=== PATIENT | male | born 1945 | race Caucasian/White ===

== ENCOUNTER 2024-04-05 06:44 | Day surgery (SDC) | payer OTHER, SELFPAY ==
[2024-04-05] VITALS (17 sets, daily range): BP systolic 104–167; BP diastolic 55–128; BMI 26.5
[2024-04-05] MEDS: LOW STRENGTH ASPIRIN 81 MG PO (07:12)
[2024-04-05] MEDS: NSS 1000 IV (07:20)
[2024-04-05 07:41] LABS: % Basophils 0.5 % (0-2); % Eosinophils 0.4 % (0-6); % Immature Granulocytes 0.4 % (0-0.5); % Lymphocytes 30.8 % (20.5-51.1); % Monocytes 7.3 % (1.7-9.3); % Neutrophils 60.6 % (42.2-75.2); Absolute Lymphocytes 2.6 10^3/uL (1.2-3.4); Absolute Monocytes 0.6 10^3/uL (0.1-0.6); Absolute Neutrophils 5.1 10^3/uL (1.4-6.5); Hematocrit 43.6 % (39.0-52.0); Hemoglobin 14.4 g/dL (13.0-18.0); Mean Corpuscular Volume 90.8 fL (80.0-94.0); Mean Platelet Volume 11.4 fL (7.4-10.4); Nucleated Red Blood Cells % 0 % (-); Platelet Count 151 10^3/uL (130-400); Red Cell Dist. Width 13.4 % (11.5-14.5); White Blood Cell Count 8.3 10^3/uL (4.8-10.8)
[2024-04-05 08:07] LABS: ALT (SGPT) 17 U/L (0-50); AST (SGOT) 24 U/L (17-59); Albumin 4.1 g/dl (3.5-5.0); Alkaline Phosphatase 78 U/L (38-126); Blood Urea Nitrogen 22 mg/dl (9-20); Calcium 9.6 mg/dl (8.4-10.2); Carbon Dioxide 30 mmol/L (22-30); Chloride 105 mmol/L (98-107); Estimated Creatinine Clearance 64 ml/min; Glucose 91 mg/dl (70-99); Potassium 4.8 mmol/L (3.5-5.1); Sodium 141 mmol/L (135-145); Total Bilirubin 0.8 mg/dl (0.2-1.3); Total Protein 6.7 g/dl (6.3-8.2); eGFR > 60.00
[2024-04-05] MEDS: LASIX 20 MG IV (09:27)
--- NOTE | 2024-04-05 09:42 | PTCARENOTE ---
pt arrived to [facility] S/P cath procedure. Denies any chest pain. Lasix 20mg IV given over 2 min. Shortly after pt had a 26 beat run of VT Asymptomatic. 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 Toprol 50 mg ordered
[2024-04-05] MEDS: TOPROL XL 50 MG PO (09:47)
--- NOTE | 2024-04-05 09:54 | PTCARENOTE ---
Pt voided 300ml of yellow urine after 20mg of lasix IV
--- NOTE | 2024-04-05 12:24 | PTCARENOTE ---
After Pt recd 20mg of lasix , pt voided a total of 1200ml of urine. VSS at discharge . No further VT
--- NOTE | 2024-04-05 17:00 | ITS.CL.CATH ---
Prosthetic Aide - Catheterization
Cardiac Catheterization
Procedure Report:
LEFT HEART CATHETERIZATION
Date of Procedure: April 05, 2024
Referring: Iglesia Bartlett DO
PROCEDURES:
1. Left catheterization, coronary angiogram.
2. Ultrasound-guided access.
3. Attempted right heart catheterization but aborted
INDICATION: New cardiomyopathy as OSH with LVEF 25%, recovered to 40-45% on follow up
ACCESS:
1. Right radial artery, 6Fr. sheath, under US guidance
2. Right brachial vein, 6Fr. sheath. Given significant tortuosity in SCV, this access had to be aborted and RHC could not be performed. Given elevated LVEDP without evidence on exam of low flow state, did not think risk of obtaining femoral access
to complete RHC outweighed benefits in setting of anticoagulation on board.
HEMODYNAMICS : (mmHg)
AO (s/d) : 159/85
LV (s/d) : 148/16
LVEDP : 26mmHg
AO saturation: 91.8% on room air
CORONARY FINDINGS
DOMINANCE: Right
LEFT MAIN: The left main artery is a large-caliber vessel which gives rise to the left anterior descending artery and the left circumflex artery. There is minimal luminal irregularities.
LEFT ANTERIOR DESCENDING: The left anterior descending artery is a large-caliber vessel which gives rise to multiple small to medium caliber diagonal branches as it courses through the anterior interventricular groove and wraps around the apex.
There is moderate degree of tortuosity. There is mild diffuse atherosclerotic plaque. Robust left to right collaterals are noted.
CIRCUMFLEX: The left circumflex artery is a medium caliber vessel which gives rise to 1 small high rising obtuse marginal branch and a second medium to large caliber OM branch. There is moderate degree of tortuosity. Otherwise mild diffuse
atherosclerotic plaque.
RIGHT CORONARY ARTERY: The right coronary artery is a medium to large caliber, dominant vessel which gives rise to the right posterior descending artery and the right posterolateral system. There is long diffuse 40 to 50% mid RCA stenosis with
moderate degree of tortuosity. Distal RCA has 100% chronic total occlusion with robust collaterals from left to right.
SEDATION: 51 minutes of procedural sedation was utilized. An independent medical records administrator was present to assist with and help manage the patient's level of consciousness and physiologic status.
RADIATION SUMMARY: Fluoro Time (min): 6.4, Dose (mGy): 377.5, DAP (Gy.cm2) : 32.7
Closure Device:
1. Vascular band was placed over RRA, 10cc of air.
2. Manual pressure was held over right brachial venous access site with successful hemostasis.
CONCLUSIONS
1. Moderately tortuous coronary arteries.
2. Mild to moderate atherosclerotic plaque in the left coronary system.
3. 40 to 50% mid RCA stenosis. Distal RCA with 100% chronic total occlusion with [id number] collaterals.
4. Significantly elevated LVEDP at 26 mmHg
RECOMMENDATIONS
1. Goal-directed medical therapy for underlying coronary artery disease and ischemic cardiomyopathy.
2. Wean radial band per protocol.
3. Aggressive management of cardiovascular risk factors.
4. Outpatient referral for cardiac rehab.
Copy to: Iglesia Bartlett DO
Kallie Squires MD, FACC, [facility]
== END 2024-04-05 11:40 | disposition home or self-care (01) ==
LOC: CATH 06:44
PROVIDERS: ATTENDING PHYSICIAN Internal Medicine Interventional Cardiology; FAMILY PHYSICIAN Family Medicine; OTHER PHYSICIAN Nuclear Medicine Nuclear Cardiology
DX: I25.10 Atherosclerotic heart disease of native coronary artery without angina pectoris (principal); I25.82 Chronic total occlusion of coronary artery; Z87.891 Personal history of nicotine dependence; Z79.82 Long term (current) use of aspirin
CPT/HCPCS: 99152; 99153; 80053; 83735; 85025; 93458; C1769; C1894; Q9967

== ENCOUNTER 2024-04-17 11:38 | Emergency (ER) | payer OTHER, SELFPAY ==
[2024-04-17] VITALS (12 sets, daily range): BP systolic 90–146; BP diastolic 53–115; PULSE 54–62
--- NOTE | 2024-04-17 12:18 | ED.GENMED ---
History of Present Illness
<Luz Wilson PA-C - Last Filed: 04/17/24 18:02>
General
Chief Complaint: Fainting/Passed Out
Source: patient
Exam Limitations: none
Time Seen by Provider: 04/17/24 12:16
Nursing documentation reviewed up to this point in time: agreed with
History of Present Illness
History of Present Illness:
This is a 78 y/o male with a PMH of afib no thinners, CHF, sleep apnea presenting emergency department today with concerns of a syncopal episode. Patient is a patient of Dr. Bartlett for cardiology. Patient states that he has been feeling dizzy on
and off the past few weeks. Patient states that he feels dizziness when he stands from a sitting position. Patient states that he will feel very lightheaded for a time and then will have to sit down and will resolve. Patient is never had a
syncopal episode until last night. Patient states that he is seeing and catch watching TV and he stood up to adjust the curtains at this point, his witnessed him pass out and fall straight back from a standing position onto his head. Patient
fell back and hit the back of his head. Patient states that he feels well now, denies any visual changes, denies any headache, denies any eye pain. Patient has had no nausea or vomiting. Patient called the office today and he was advised to
report to emergency department. Patient denies any chest pain or shortness of breath. No lower extremity swelling or edema. Of note, patient had a recent cardiac catheterization which prompted which results prompted increase in his medications.
Patient states that since then he feels like his dizziness has gotten worse. Patient does take 2 diuretics as well as beta-blockers and other blood pressure medications. Patient has been stopping and starting different medications himself and
appears to be confused what exactly he should be taking
Past History
<Luz Wilson PA-C - Last Filed: 04/17/24 18:02>
Past History
ED Past Medical History: Arrthythmia (Paroxysmal atrial fibrillation), CHF, HTN, Hypercholesterolemia and Psychiatric
ED Past Surgical History: Cardiac (A. fib ablation 2013; Linq recorder implantation 2013 then removal August 2017.)
Social History
Tobacco: Smoker
Alcohol: Occasional
Drug: None
Personal:
Living: with family
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
Family History
Family History: Other (Noncontributory)
Review of Systems
<Luz Wilson PA-C - Last Filed: 04/17/24 18:02>
Review of Systems
All Other Systems: ROS reviewed and negative except as documented in HPI and ROS
Phy Exam
<Luz Wilson PA-C - Last Filed: 04/17/24 18:02>
Physical Exam
Physical Exam:
General: Patient is well appearing and in no acute distress; non-toxic
Skin: Warm and dry, no rashes or lesions
Head: Normocephalic, atraumatic
Eyes: Sclera non-icteric. EOMs intact. PERRLA.
Cardiac: Regular rate and rhythm, no murmurs
Peripheral Vascular: No lower extremity swelling or edema. Orthostatic vitals are positive. Patient's blood pressure decreases from around 130 systolically to 90s systolically when standing.
Pulm: Normal respiratory effort, no wheezes, rales, rhonchi
Abdomen: No abdominal tenderness to palpation
Neuro: CN II-XII intact, no focal neurologic deficits.
Psychiatric: Appropriate mood and affect.
Course
<Luz Wilson PA-C - Last Filed: 04/17/24 18:02>
Orders/Labs/Results
Orders:
Orders
04/17/24 12:21
Electrocardiogram (*1) Urgent
Reason for Study: Syncope
EKG- Treatment ONCE
04/17/24 12:22
Orthostatic VS- Treatment ONCE
04/17/24 12:59
Complete Blood Count/With Diff Urgent
Comprehensive Metabolic Panel Urgent
04/17/24 13:06
CT Head W/o Iv Contrast Urgent
Comment:
Reason For Exam: syncope, head trauma
04/17/24 14:09
0.9% Sodium Chloride 1000 ml [Nss] 1,000 ml IV BOLUS
Abnormal Lab Results
04/17/24
12:59
MPV 12.5 H fL
(7.4-10.4)
Absolute Neuts (auto) 6.7 H 10^3/uL
(1.4-6.5)
Lymphocytes % 17.8 L %
(20.5-51.1)
Potassium 5.3 H mmol/L
(3.5-5.1)
BUN 28 H mg/dl
(9-20)
Glucose 101 H mg/dl
(70-99)
04/17/24 12:59
04/17/24 12:59
Vital Signs
Initial and Last Documented VS:
Initial Vital Signs
Temp Pulse Resp BP Pulse Ox
98.1 F 74 18 130/73 99
04/17/24 11:47 04/17/24 11:47 04/17/24 11:47 04/17/24 11:47 04/17/24 11:47
Last Documented Vital Signs
Temp Pulse Resp BP Pulse Ox
98.1 F 60 14 134/78 92
04/17/24 11:47 04/17/24 15:46 04/17/24 15:46 04/17/24 15:46 04/17/24 15:45
Apurvalt;Meet Pena, DO - Last Filed: 04/17/24 14:27>
Orders/Labs/Results
Orders:
Orders
04/17/24 12:21
Electrocardiogram (*1) Urgent
Reason for Study: Syncope
EKG- Treatment ONCE
04/17/24 12:22
Orthostatic VS- Treatment ONCE
04/17/24 12:59
Complete Blood Count/With Diff Urgent
Comprehensive Metabolic Panel Urgent
04/17/24 13:06
CT Head W/o Iv Contrast Urgent
Comment:
Reason For Exam: syncope, head trauma
04/17/24 14:09
0.9% Sodium Chloride 1000 ml [Nss] 1,000 ml IV BOLUS
Abnormal Lab Results
04/17/24
12:59
MPV 12.5 H fL
(7.4-10.4)
Absolute Neuts (auto) 6.7 H 10^3/uL
(1.4-6.5)
Lymphocytes % 17.8 L %
(20.5-51.1)
Potassium 5.3 H mmol/L
(3.5-5.1)
BUN 28 H mg/dl
(9-20)
Glucose 101 H mg/dl
(70-99)
04/17/24 12:59
04/17/24 12:59
Vital Signs
Initial and Last Documented VS:
Initial Vital Signs
Temp Pulse Resp BP Pulse Ox
98.1 F 74 18 130/73 99
04/17/24 11:47 04/17/24 11:47 04/17/24 11:47 04/17/24 11:47 04/17/24 11:47
Last Documented Vital Signs
Temp Pulse Resp BP Pulse Ox
98.1 F 60 14 134/78 92
04/17/24 11:47 04/17/24 15:46 04/17/24 15:46 04/17/24 15:46 04/17/24 15:45
Apurvalt;Luz Wilson PA-C - Last Filed: 04/17/24 18:02>
MDM/Problems Addressed
Differential Diagnosis Includes:
Differentials include arrhythmia, orthostatic hypotension, polypharmacy, stroke, electrolyte derangement
MDM/Problems Addressed:
Lightheadedness/syncopal episode:
This is a 78 y/o male with a PMH of afib no thinners, CHF, sleep apnea presenting emergency department today with concerns of a syncopal episode. Patient states that this occurred when he stood up from standing. Patient currently denies dizziness
or lightheadedness while here in the emergency department. His EKG demonstrates normal sinus rhythm axis deviation but no ischemic changes, his CT of the head shows no evidence of acute bleed or skull fracture, his CBC and CMP show no evidence of
anemia or electrolyte derangement. His orthostatic vitals were positive. This is likely causing his symptoms. We did have cardiology come evaluate this patient due to confusion with medication, it was determined that patient likely is being
overdiuresed. Cardiology did make new medication change recommendations. We discussed these changes with patient. Return precautions given. Patient has a follow-up appointment with Dr. Bartlett next week.
Chronic conditions affecting care:
CHF, A-fib on no blood thinner, hypertension, hyperlipidemia, GERD
Acute Exacerbation and/or Progression of Chronic Illness:
CHF, A-fib on no blood thinner, hypertension, hyperlipidemia, GERD
Apurvalt;Luz Wilson PA-C - Last Filed: 04/17/24 18:02>
*Pulse Oximetry
Patient hypoxic: no
*EKG
Interpreted by ED Provider?: Yes
EKG Intrepretation Date: 04/17/24
Interpretation: normal
Comparison EKG: changes noted (no significant changes )
Heart Rate: 60
Rate: normal
Rhythm: sinus
Hixson: left axis deviation
Interval: normal interval, normal QT interval and normal SC interval
QRS Pattern: normal QRS
Ischemia: no ischemia
*Document Management Analyst Interpretation
Rate: normal
Interpretation: normal
Heart Rate: 70
Rhythm: sinus
*Critical Care Note
Total Time (30-74mins, 75-104mins- exclusive of procedures): Not Applicable
Data Reviewed
Review of Other/Old Records Reveals: Operative Reports (reviewed crime lab analyst report from 04/05/17)
<Luz Wilson PA-C - Last Filed: 04/17/24 18:02>
Patient Management
Discussion with other providers: Invoice Classification Clerk (cardiology)
Escalation/DeEscalation of care consider admission/obs:
Admit not indicated. Reviewed this case with my attending Dr. Pena.
ED Attending Note
<Luz Wilson PA-C - Last Filed: 04/17/24 18:02>
-
Portions of this chart may have been created with voice recognition software.� Occasional wrong word or��sound alike� substitutions may have occurred due to the inherent limitations of voice recognition software.
<Meet Pena DO - Last Filed: 04/17/24 14:27>
ED Attending Note
Patient seen and examined by attending physician: Yes
I performed the substantive portion of visit, reviewed & personally made and approve the management plan that is documented in note by myself or RADHA.: Yes
ED Attending Note:
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 BARTLETT status post cardiac cath few weeks ago since then has been feeling weak and dizzy, passed out yesterday, here he looks well labs are noted, is orthostatic, states
he got some new meds after his cath, will touch base with cardiology to confirm in the meantime will start some saline hydration
Discharge Plan
Departure
Patient Disposition: Home (Routine Discharge)
Date of Disposition: 04/17/24
Time of Disposition: 15:45
Patient with high blood pressure during this ER visit?: Yes
Condition: Good
Discharge Problem:
Orthostatic hypotension, Syncope
Instructions: Orthostatic hypotension, Syncope (Fainting) (DC), BLOOD PRESSURE
Prescriptions:
No Action
paroxetine HCl 20 MG tablet
20 mg PO DAILY
aspirin 81 mg Tablet,Delayed Release (Dr/Ec)
81 mg PO DAILY
ibuprofen [Advil] 200 mg Tablet
200 mg PO Q6HPRN PRN (Reason: back pains)
metoprolol succinate 50 mg Tablet Extended Release 24 Hr
50 mg PO DAILY Qty: 30 0RF
omeprazole 40 mg Capsule,Delayed Release(Dr/Ec)
40 mg PO DAILY
coenzyme Q10 [CoQ-10] 100 mg Capsule
100 mg PO DAILY
atorvastatin 80 mg tablet
80 mg PO QPM Qty: 90 3RF
valsartan 320 mg tablet
320 mg PO DAILY Qty: 90 3RF
spironolactone 25 mg tablet
25 mg PO DAILY Qty: 90 3RF
furosemide 20 mg Tablet
20 mg PO BID Qty: 60 6RF
Referrals:
Hung Barrett, DO [Family Provider] -
Activity Restrictions/Additional Instructions:
Please follow-up with Dr. Bartlett next week with your scheduled appointment. Have a blood test called [facility] repeated in one week.
Please follow these medication recommendations by cardiology:
switch lasix to one 20 mg tablet once daily
take one 50 mg tablet of metoprolol once daily
switch valsartan back to one 160 mg tablet once daily
stop spironolactone
Please return to emergency department should you experience chest pain, shortness of breath, further syncopal episodes, headache, lightheadedness, visual changes, or any other concerning signs or symptoms.
Interventions
Interventions:
*Risk Screen - Suicide Last Done: 04/17/24 11:47
*General Assessment Last Done: 04/17/24 12:35
*Neglect/Abuse Screening Last Done: 04/17/24 11:47
ED- Fall Risk Assessment Last Done: 04/17/24 13:20
*ED COVID-19 Vaccine History Last Done: 04/17/24 11:47
*Nursing Disposition Last Done: 04/17/24 16:11
ED- Cardiac Assessment Last Done: 04/17/24 12:38
ED- Neurological Assessment Last Done: 04/17/24 12:38
Discharge Date and Time
Discharge Date/Time: 04/17/24 16:12
Print Language: MACEDONIAN
[2024-04-17 13:06] LABS: % Basophils 0.3 % (0-2); % Eosinophils 0.6 % (0-6); % Immature Granulocytes 0.2 % (0-0.5); % Lymphocytes 17.8 % (20.5-51.1); % Monocytes 6.2 % (1.7-9.3); % Neutrophils 74.9 % (42.2-75.2); Absolute Eosinophils 0.1 10^3/uL (0-0.7); Absolute Lymphocytes 1.6 10^3/uL (1.2-3.4); Absolute Monocytes 0.6 10^3/uL (0.1-0.6); Absolute Neutrophils 6.7 10^3/uL (1.4-6.5); Hemoglobin 15.5 g/dL (13.0-18.0); Mean Corp Hgb Conc. 33.7 g/dL (33.0-37.0); Mean Corpuscular Hgb 30.3 pg (27.0-31.0); Mean Platelet Volume 12.5 fL (7.4-10.4); Nucleated Red Blood Cells % 0 % (-); Platelet Count 179 10^3/uL (130-400); Red Blood Cell Count 5.11 10^6/uL (4.70-6.10); Red Cell Dist. Width 13.1 % (11.5-14.5); White Blood Cell Count 8.9 10^3/uL (4.8-10.8)
[2024-04-17 13:29] LABS: ALT (SGPT) 19 U/L (0-50); AST (SGOT) 24 U/L (17-59); Albumin 4.6 g/dl (3.5-5.0); Alkaline Phosphatase 88 U/L (38-126); Blood Urea Nitrogen 28 mg/dl (9-20); Calcium 9.9 mg/dl (8.4-10.2); Carbon Dioxide 29 mmol/L (22-30); Chloride 104 mmol/L (98-107); Glucose 101 mg/dl (70-99); Potassium 5.3 mmol/L (3.5-5.1); Sodium 140 mmol/L (135-145); Total Protein 7.4 g/dl (6.3-8.2); eGFR > 60.00
[2024-04-17] MEDS: NSS 1000 IV (14:15)
--- NOTE | 2024-04-17 15:08 | CON.CAR ---
Addendum entered and electronically signed by Bita Chaves MD 04/17/24 16:08:
I saw and examined the patient.
The Certified Emergency Vehicle Technician's note was reviewed and I agree with the note.
Comment: He appears to be dehydrated, orthostatic and overmedicated. We will de-escalate his medications. He did receive IV fluids gently in the ER. He is feeling better. All studies and labs reviewed.
Plan at this time as noted to decrease valsartan to 160 mg daily. Hold spironolactone. Hold Lasix 1 day and then resume 20 mg daily. Blood work before upcoming visit next week.
We discussed isometric exercises. We discussed signs and symptoms of cardiovascular disease and he will call if new symptoms noted. Discussed at length with the patient and his
Original Note:
Consultation
Consultation Request
Date/Time Consultation Performed: 04/17/24
Requesting Provider: Dr. Pena
Performing Provider: Nadine Todd PA-C for Dr. Bita Chaves
Reason for Consultation: syncope
Medical History
-
Chief Complaint: syncope
History of Present Illness:
Patient is a 78-year-old male with past medical history of paroxysmal atrial fibrillation with history of PVI in 2013, systolic congestive heart failure, cardiomyopathy by admission at [facility] 12/13- with EF improved from 25 to 30% to 40
to 45% during the hospitalization, with elevated troponin, suspicion for Takotsubo. During admission he had atrial fibrillation but converted back to sinus rhythm. He had hypertensive emergency on admission and had run out of his diuretic 2 weeks
prior. He initially required BiPAP. He was started on diuretics and developed SCHUYLER. Due to this did not undergo ischemic evaluation during that admission. He underwent cardiac catheterization 04/05/2024 at which showed a distal RCA occlusion
with 40 to 50% mid RCA stenosis and mild to moderate plaque in left coronary system with LVEDP of 26. Based on results of cath, his spironolactone was increased from 12.5 mg daily to 25 mg daily, his valsartan was increased from 160 mg daily to 320
mg daily, and he was recommended increasing his Lasix from 20 mg daily to 20 mg twice daily. He states he may have taken the twice daily Lasix for a day or 2, however then decreased it back to 20 mg daily on his own. Since his cath he reports
feeling intermittently dizzy and weak. Last evening he was watching TV and stood up to close a curtain and felt lightheaded and passed out. He was called by our office today due to results of blood work completed last week with creatinine up to
1.65 and potassium of 5.5. He relayed to them the syncopal episode and was referred to the ER for evaluation. In ER creatinine improved to 1.2 and potassium improved to 5.3. He was orthostatic in ER.
PMH:
CAD with distal RCA occlusion, 40-50% mid RCA, mild to mod plaque in L coronary system by cath 04/05/24
Ischemic cardiomyopathy, EF 40 to 45% by echo at [facility] 11/2023
Paroxysmal atrial fibrillation
History of PVI in 2013
History of tachy induced CM in setting of afib prePVI
Not anticoagulated due to patient preference/cost
Systolic congestive heart failure
HTN
HLD
GERD
Former smoker
Past Medical History
Past Medical History: Other (in HPI)
Social History
Tobacco: Former Smoker
Personal:
Living: With Family
Employment: Retired
Allergies / Home Medications
Allergy/AdvReac Type Severity Reaction Status Date / Time
No Known Allergies Allergy Verified 04/17/24 11:46
�Medication �Instructions �Recorded �Confirmed �Type
paroxetine HCl 20 mg tablet 20 mg PO DAILY 01/04/13 04/05/24 History
aspirin 81 mg tablet,delayed 81 mg PO DAILY 10/19/23 04/05/24 History
release
ibuprofen 200 mg tablet (Advil) 200 mg PO Q6HPRN PRN back pains 10/19/23 04/05/24 History
metoprolol succinate 50 mg 50 mg PO DAILY #30 tabs 10/20/23 04/05/24 Rx
tablet,extended release 24 hr
atorvastatin 80 mg tablet 80 mg PO QPM #90 tabs 04/05/24 Rx
coenzyme Q10 100 mg capsule 100 mg PO DAILY 04/05/24 04/05/24 History
(CoQ-10)
furosemide 20 mg tablet 20 mg PO BID #60 tabs 04/05/24 04/05/24 Rx
omeprazole 40 mg capsule,delayed 40 mg PO DAILY 04/05/24 04/05/24 History
release
spironolactone 25 mg tablet 25 mg PO DAILY #90 tabs 04/05/24 Rx
valsartan 320 mg tablet 320 mg PO DAILY #90 tabs 04/05/24 04/17/24 Rx
Review of Systems
-
History Source: Patient and Family
All other systems: Negative unless noted
Physical Exam
Vital Signs
Temp Pulse Resp BP Pulse Ox
98.1 F 74 18 130/73 99
04/17/24 11:47 04/17/24 11:47 04/17/24 11:47 04/17/24 11:47 04/17/24 11:47
Lab Results
04/17/24 12:59
04/17/24 12:59
Physical Exam
General: No Apparent Distress and Comfortable
HEENT: Normocephalic, Anicteric and Moist Mucous Membranes
Respiratory: Non Labored Respirations
Cardiac: S1/S2 and Regular Rhythm
GI: Soft, Non Tender, Non Distended and Normal Bowel Sounds
Musculoskeletal: No Clubbing, No Cyanosis and No Edema
Skin: Warm and Dry
Neuro: AO x 3
Impression / Plan
-
Primary Rim Turning Machine Operator: Dr. Bartlett
Assessment:
Presentation with syncope
Orthostatic hypotension
SCHUYLER
Hyperkalemia
CAD with distal RCA occlusion, 40-50% mid RCA, mild to mod plaque in L coronary system by cath 04/05/24
Ischemic cardiomyopathy, EF 40 to 45% by echo at [facility] 11/2023
Paroxysmal atrial fibrillation
History of PVI in 2013
History of tachy induced CM in setting of afib prePVI
Not anticoagulated due to patient preference/cost
Chronic systolic congestive heart failure
HTN
HLD
GERD
Former smoker
ECHO 11/2023 at [facility]: EF 25 to 30%, apical ballooning with apical dyskinesia and adjacent foster akinetic, basal wall circumferentially mild to moderately hypokinetic, mild AR, mild MR, trace to mild TR, peak PA pressure 40 mmHg. reported
improvement in 40-45% prior to DC
Plan:
-Patient presents with syncope in the setting of recent medication adjustment after cath 04/05/2024. He has a history of adjusting his medicines on his own as he sees appropriate
-Head CT report reviewed, no evidence of acute abnormality
-He is orthostatic in the emergency room. Receiving gentle IV hydration. compression stockings ok as able to tolerate
-Cardiology consulted for assistance with medication management
-Creatinine and potassium levels improving compared to outpatient labs 04/12/2024
-Plan for no spironolactone moving forward. Will place on lasix 20 mg p.o. daily starting in a.m. will plan to decrease valsartan back to 160mg daily for now and can follow BPs as OP and uptitrate as able
-BMP in 1 week
-advised patient to follow daily weights
-OP cardiac follow up scheduled for 04/24/24
-he is scheduled for OP echo to reeval EF 05/02/24 in setting of recent diagnosis CM
-he had recurrence of afib during 11/2023 admission. in SR today. would consider for OP cardiac monitoring, defer to primary appraisal technician.
-he is a [id number] score of 5 for age, HTN, CHF, vascular disease. he previously has refused OAC due to cost. remains on asa.
-d/w patient and at bedside
-d/w ER PA and DO, primary appraisal technician
Data Reviewed
-
EKG: Tracing Personally Visualized and interpreted
CT Scan: Report Reviewed by me
Medical Tests (Nuc Med, Echo etc): Report Reviewed by me
Labs: Labs Reviewed by me
Old Records: Reviewed
== END 2024-04-17 16:12 | disposition home or self-care (01) ==
LOC: EMR 11:38
PROVIDERS: Physician Assistant; EMERGENCY PHYSICIAN Emergency Medicine; FAMILY PHYSICIAN Family Medicine
DX: I95.9 Hypotension, unspecified (principal); R55 Syncope and collapse; I48.91 Unspecified atrial fibrillation; I11.0 Hypertensive heart disease with heart failure; I50.9 Heart failure, unspecified; E78.00 Pure hypercholesterolemia, unspecified; F17.200 Nicotine dependence, unspecified, uncomplicated; I25.10 Atherosclerotic heart disease of native coronary artery without angina pectoris; I25.5 Ischemic cardiomyopathy; I42.9 Cardiomyopathy, unspecified; K21.9 Gastro-esophageal reflux disease without esophagitis; N17.9 Acute kidney failure, unspecified; Z79.82 Long term (current) use of aspirin
CPT/HCPCS: 99283; 96360; 70450; 80053; 85025; 93005

== ENCOUNTER → 2024-05-24 09:20 | Outpatient (REF) | payer OTHER, SELFPAY | LOC: RCS 09:20 | PROVIDERS: ATTENDING PHYSICIAN Nuclear Medicine Nuclear Cardiology; FAMILY PHYSICIAN Family Medicine | DX: I50.30 Unspecified diastolic (congestive) heart failure (principal) | CPT/HCPCS: 93306 ==

== ENCOUNTER 2024-11-07 06:28 | Day surgery (SDC) | payer OTHER, SELFPAY | END 2024-11-07 12:36 | disposition home or self-care (01) | LOC: GI 06:28 | PROVIDERS: ATTENDING PHYSICIAN Internal Medicine Gastroenterology; FAMILY PHYSICIAN Family Medicine | DX: R13.10 Dysphagia, unspecified (principal); K22.2 Esophageal obstruction; K22.89 Other specified disease of esophagus; K44.9 Diaphragmatic hernia without obstruction or gangrene; Q39.9 Congenital malformation of esophagus, unspecified; K31.89 Other diseases of stomach and duodenum | CPT/HCPCS: 43239; 88305; 88342 ==

== ENCOUNTER → 2024-11-25 11:16 | Outpatient (REF) | payer OTHER, SELFPAY | LOC: RAD 11:16 | PROVIDERS: ATTENDING PHYSICIAN Internal Medicine; FAMILY PHYSICIAN Family Medicine | DX: R13.19 Other dysphagia (principal) | CPT/HCPCS: 74246 ==

== ENCOUNTER 2025-05-26 08:53 | Emergency (ER) | payer OTHER, SELFPAY ==
[2025-05-26 08:54] VITALS: BP 138/82
[2025-05-26 09:08] VITALS: BP 141/99
--- NOTE | 2025-05-26 09:23 | ED.GENMED ---
History of Present Illness
General
Chief Complaint: Chest Problem
Source: patient
Time Seen by Provider: 05/26/25 09:02
History of Present Illness
History of Present Illness:
79-year-old male presents after experiencing left-sided chest pain while on the treadmill. He typically walks 3 miles a day on the treadmill. He states he was 1/4 mile into his walk and developed discomfort to the left side of the chest. This was
quite severe. He removed himself from the treadmill and since then the pain is resolved. He has a history of atrial fibrillation, ablations not currently anticoagulated. He has had a catheterization last year which showed chronic disease in the
distal occlusion of the right RCA however there was collaterals there. No other stentable lesion was noted at that time. Currently he is pain-free. No fevers. He does note intermittent discomfort over the past couple months but nothing that was
as significant as today.
Past History
Past History
ED Past Medical History: Arrthythmia (Paroxysmal atrial fibrillation), CHF, HTN, Hypercholesterolemia and Psychiatric
ED Past Surgical History: Cardiac (A. fib ablation 2013; Linq recorder implantation 2013 then removal August 2017.)
Social History
Tobacco: Smoker
Alcohol: Occasional
Drug: None
Personal:
Living: with family
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
Family History
Family History: Other (Noncontributory)
Phy Exam
Physical Exam
Physical Exam:
General: Well-appearing male no acute distress
HEENT normocephalic atraumatic
Heart: Irregular rhythm
Lungs: Clear no wheeze
Extremities: No cyanosis or edema
Skin warm no rash
Course
Orders/Labs/Results
Orders:
Orders
05/26/25 08:54
Electrocardiogram (*1) Urgent
Reason for Study: Chest Pain
EKG- Treatment ONCE
05/26/25 09:22
Aspirin 325 mg PO NOW STA
05/26/25 09:23
CR Chest - 2 Views Urgent
Comment:
Reason For Exam: chest pain
05/26/25 09:27
TSH Reflex To Free T4 Urgent
05/26/25 09:28
Complete Blood Count/With Diff Urgent
Comprehensive Metabolic Panel Urgent
Troponin I Urgent
05/26/25 12:56
Troponin I Urgent
Abnormal Lab Results
05/26/25
09:28
MCHC 32.2 L g/dL
(33.0-37.0)
MPV 12.4 H fL
(7.4-10.4)
Glucose 110 H mg/dl
(70-99)
05/26/25 09:28
05/26/25 09:28
Vital Signs
Initial and Last Documented VS:
Initial Vital Signs
Temp Pulse Resp BP Pulse Ox
97.9 F 84 16 138/82 98
05/26/25 08:54 05/26/25 08:54 05/26/25 08:54 05/26/25 08:54 05/26/25 08:54
Last Documented Vital Signs
Temp Pulse Resp BP Pulse Ox
97.9 F 72 24 150/103 97
05/26/25 08:54 05/26/25 11:45 05/26/25 11:00 05/26/25 11:00 05/26/25 11:45
MDM/Problems Addressed
Differential Diagnosis Includes:
Exertional discomfort somewhat during her possible ischemic disease of note patient does have atrial flutter with variable block on EKG. At the time of EKG the rate was around 100 however when I was in the room the rate was in the 70s or 80s.
Concern for ACS versus rhythm driven symptoms. He is pain-free now do not suspect dissection or PE.
Full aspirin ordered troponin pending x-ray pending. Discussed with emergency room attending, will notify cardiology
*Pulse Oximetry
SaO2: 98
Oxygen Mode of Delivery: Room air
Patient hypoxic: no
*Critical Care Note
Total Time (30-74mins, 75-104mins- exclusive of procedures): Not Applicable
Update Note
Update Note:
EKG shows atrial flutter with variable block with a rate of 101
Initial and repeat troponins both undetectable. Discussed findings with cardiology who saw the patient. Plan per cardiology was if the repeat troponin still undetectable he stable for discharge with outpatient stress test. The office will call
the patient with his scheduled appointment for the stress test. Still pain-free. He is rate controlled a flutter does not want to do any blood thinners. He is aware of the risk of not taking blood thinnners and risk of stroke in the setting of
afib/flutter.
ED Attending Note
-
Portions of this chart may have been created with voice recognition software.� Occasional wrong word or��sound alike� substitutions may have occurred due to the inherent limitations of voice recognition software.
Discharge Plan
Departure
Patient Disposition: Home (Routine Discharge)
Date of Disposition: 05/26/25
Time of Disposition: 13:47
Patient with high blood pressure during this ER visit?: No
Discharge Problem:
Chest pain
Instructions: Chest Pain DCA Follow Up
Prescriptions:
No Action
paroxetine HCl 20 MG tablet
20 mg PO DAILY
aspirin 81 mg Tablet,Delayed Release (Dr/Ec)
81 mg PO DAILY
ibuprofen [Advil] 200 mg Tablet
200 mg PO Q6HPRN PRN (Reason: back pains)
metoprolol succinate 50 mg Tablet Extended Release 24 Hr
50 mg PO DAILY Qty: 30 0RF
omeprazole 40 mg Capsule,Delayed Release(Dr/Ec)
40 mg PO DAILY
coenzyme Q10 [CoQ-10] 100 mg Capsule
100 mg PO DAILY
atorvastatin 80 mg tablet
80 mg PO QPM Qty: 90 3RF
valsartan 320 mg tablet
320 mg PO DAILY Qty: 90 3RF
spironolactone 25 mg tablet
25 mg PO DAILY Qty: 90 3RF
furosemide 20 mg Tablet
20 mg PO BID Qty: 60 6RF
Referrals:
Hung Barrett DO [Family Provider, Family Practice]
Iglesia Bartlett DO [Active, Cardiology]
Referral Note: The cardiology office will call you to schedule stress test, come back to the emergency room.
Activity Restrictions/Additional Instructions:
-Dr. Bartlett's office will call you to schedule a stress test. If you have any additional chest pain return to the emergency room.
Interventions
Interventions:
*Risk Screen - Suicide Last Done: 05/26/25 08:56
*Neglect/Abuse Screening Last Done: 05/26/25 08:56
ED- Cardiac Assessment Last Done: 05/26/25 09:17
ED- Pulmonary Assessment Last Done: 05/26/25 09:17
Discharge Date and Time
Print Language: SAMMARINESE
[2025-05-26] MEDS: ASPIRIN 325 MG PO (09:28)
[2025-05-26 09:38] LABS: Hematocrit 45.9 % (39.0-52.0); Hemoglobin 14.8 g/dL (13.0-18.0); Mean Corp Hgb Conc. 32.2 g/dL (33.0-37.0); Mean Corpuscular Volume 91.4 fL (80.0-94.0); Nucleated Red Blood Cells % 0 % (-); Platelet Count 176 10^3/uL (130-400); Red Cell Dist. Width 14.1 % (11.5-14.5)
[2025-05-26 09:55] LABS: ALT (SGPT) 20 U/L (0-50); AST (SGOT) 24 U/L (17-59); Albumin 4.4 g/dl (3.5-5.0); Alkaline Phosphatase 72 U/L (38-126); Blood Urea Nitrogen 20 mg/dl (9-20); Calcium 9.3 mg/dl (8.4-10.2); Carbon Dioxide 28 mmol/L (22-30); Chloride 107 mmol/L (98-107); Glucose 110 mg/dl (70-99); Potassium 4.7 mmol/L (3.5-5.1); Sodium 141 mmol/L (135-145); Total Protein 7.0 g/dl (6.3-8.2); eGFR > 60.00
[2025-05-26 10:04] LABS: Troponin I < 0.012 ng/ml
[2025-05-26 10:05] VITALS: BP 156/83
[2025-05-26 11:00] VITALS: BP 150/103
--- NOTE | 2025-05-26 12:00 | CON.CAR ---
Addendum entered and electronically signed by Michael Carpio MD 05/26/25 13:41:
I saw and examined the patient.
The JAVA SECUR[employer] ARCHITECT or PA's note was reviewed and I agree with the note.
Comment: General: Well developed, well nourished in NAD.
Neck: Supple, no JVD, HJR, carotids +2 B/L, no bruits bilaterally.
Heart: Non displaced PMI, irregular, no murmurs, No S3, S4, no rubs.
Lungs: Clear to auscultation bilaterally, no wheeze, rhonchi, rubs bilaterally,
normal expiratory phase.
Abdomen: Normal bowel sounds, soft, non-tender, non-distended.
Extremities: No clubbing, cyanosis or edema bilaterally.
Neuro: Grossly nonfocal, awake, alert and oriented x3.
Meet has a history of CAD with distal RCA occlusion and mild to moderate plaque in left coronary system on catheterization in March 2024, previous nonischemic cardiomyopathy ejection fraction of 35 to 40% felt to be tachycardia mediated and
improved to 55-60% in 2013 following PVI, PAF status post PVI in 2013, patient not anticoagulated due to patient preference, chronic diastolic CHF, hypertension, reflux, hyperlipidemia. He presents with chest discomfort while walking on a
treadmill. He described as crushing chest discomfort lasting approximately 45 minutes and resolved spontaneously. He has had some discomfort recently with activities but does not have to stop.
Etiology chest pain unclear. Troponin was negative x 2 and ECG is unremarkable other than atrial flutter. He continues to decline anticoagulation understands increased risk of stroke. Will arrange outpatient exercise sestamibi stress test to
exclude ischemia. He is to call with recurrent chest discomfort. Unclear whether he could be having chest discomfort due to occluded distal RCA noted in 2013. Discussed with patient, , and ER staff.
Original Note:
Consultation
Consultation Request
Date/Time Consultation Requested: 05/26/2025
Date/Time Consultation Performed: 05/26/2025
Requesting Provider: PRANAY Escudero in the ER
Performing Provider: Dr. Carpio
Reason for Consultation: Chest pain, atrial flutter
Medical History
-
History of Present Illness:
Patient came to the hospital today after an episode of chest pain while on the treadmill at the gym and cardiology is consulted. Patient woke up in his usual state of health today and while walking for the first 5 minutes on his usual treadmill
exercise at the gym he had the sudden onset of a left-sided chest pain that was 10 out of 10 and the most severe pain he has ever had. Patient stopped exercising and was able to sit down and rest and the pain improved on its own in less than 30
minutes. Patient was able to stand up and walk to his car and the pain returned on the lower level of about 1-2 out of 10 and he was able to make his way home without any increase in chest pain. Patient's drove him to the hospital and since
then he has had no recurrence of pain, he is absolutely pain and discomfort free at this time. Patient reports he has had intermittent 1-2 out of 10 chest pain on the left side happening on and off for the last 2 months. Pain does not always
happen with activity and patient was not planning on any evaluation until he had the pain today. Patient with known CAD as outlined above. Initial troponin was undetectable. Patient noted to have new onset atrial flutter on ECG, but interestingly
at rest is rate controlled at 72 bpm. Patient has a known history of paroxysmal A-fib and had previous PVI in 2013. Patient took his usual dose of Toprol-XL 50 mg daily today. I personally reviewed the EKG from his office visit on 01/22/2025 and he
is in SR at that time. Patient is not chronically on OAC by his own decision, he cites the reason of cost, but also in general does not want to be on a blood thinner.
PMH:
CAD with distal RCA occlusion, 40-50% mid RCA, mild to mod plaque in left coronary system by cath at [facility] 04/05/24
Ischemic cardiomyopathy, EF 25-30% by initial echo and then improved to 40-45% by echo prior to discharge from [facility] 11/2023
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
Paroxysmal atrial fibrillation
s/p PVI in 2013
Not anticoagulated due to patient preference/cost
Chronic HFpEF
HTN
HLD
GERD
Former smoker
Past Medical History
Past Medical History: Other (in HPI)
Past Surgical History: Cardiac (PVI 2013)
Social History
Tobacco: Smoker
Alcohol: Other (drinks 3-5 days a week)
Drug: None
Personal:
Living: With Family
Employment: Retired
Family History
Family History: Other (mother with emphysema)
Allergies / Home Medications
Allergy/AdvReac Type Severity Reaction Status Date / Time
No Known Allergies Allergy Verified 04/17/24 11:46
�Medication �Instructions �Recorded �Confirmed �Type
paroxetine HCl 20 mg tablet 20 mg PO DAILY 01/04/13 04/05/24 History
aspirin 81 mg tablet,delayed 81 mg PO DAILY 10/19/23 04/05/24 History
release
ibuprofen 200 mg tablet (Advil) 200 mg PO Q6HPRN PRN back pains 10/19/23 04/05/24 History
metoprolol succinate 50 mg 50 mg PO DAILY #30 tabs 10/20/23 04/05/24 Rx
tablet,extended release 24 hr
atorvastatin 80 mg tablet 80 mg PO QPM #90 tabs 04/05/24 Rx
coenzyme Q10 100 mg capsule 100 mg PO DAILY 04/05/24 04/05/24 History
(CoQ-10)
furosemide 20 mg tablet 20 mg PO BID #60 tabs 04/05/24 04/05/24 Rx
omeprazole 40 mg capsule,delayed 40 mg PO DAILY 04/05/24 04/05/24 History
release
spironolactone 25 mg tablet 25 mg PO DAILY #90 tabs 04/05/24 Rx
valsartan 320 mg tablet 320 mg PO DAILY #90 tabs 04/05/24 04/17/24 Rx
Review of Systems
-
History Source: Patient
All other systems: Negative unless noted
Physical Exam
Vital Signs
Temp Pulse Resp BP Pulse Ox
97.9 F 72 24 150/103 97
05/26/25 08:54 05/26/25 11:45 05/26/25 11:00 05/26/25 11:00 05/26/25 11:45
GEN: NAD. AAOx3
HEENT: EOMI, MMM
LUNGS: RA. CTA B/L, no wheeze
CV: Atrial flutter on tele. Reg, S1/S2, no murmur
ABD: soft, BS+, NT, ND
EXT: No clubbing, cyanosis, lesions or edema B/L
NEURO: Gross non-focal
SKIN: Warm, dry and pink. No rash
Lab Results
05/26/25 09:28
05/26/25 09:28
Troponin I < 0.012 ng/ml 05/26/25 09:28
Impression / Plan
-
PCP: Dr. Barrett
Primary Software Lead: Dr. Bartlett
Assessment:
Presented with chest pain 05/26/25
Chest pain
CAD with distal RCA occlusion, 40-50% mid RCA, mild to mod plaque in left coronary system by cath at [facility] 04/05/24
Ischemic cardiomyopathy, EF 25-30% by initial echo and then improved to 40-45% by echo prior to discharge from [facility] 11/2023
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
Paroxysmal atrial fibrillation
s/p PVI in 2013
Not anticoagulated due to patient preference/cost
Chronic HFpEF
HTN
HLD
GERD
Former smoker
Echo 10/21/2013: EF 35 to 40%, moderate global hypokinesis
YANY 08/04/2014: EF 55 to 60%
ECHO 11/2023 at [facility]: EF 25 to 30%, apical ballooning with apical dyskinesia and adjacent foster akinetic, basal wall circumferentially mild to moderately hypokinetic, mild AR, mild MR, trace to mild TR, peak PA pressure 40 mmHg.
Echo 11/2023 at [facility]: EF 40-45% prior to DC, exact date unknown
Echo 05/24/2024: EF 50 to 55%, normal RV size and function, mild MR, mild aortic insufficiency
Plan:
-Patient came to the hospital today after an episode of chest pain while on the treadmill at the gym and cardiology is consulted. Patient woke up in his usual state of health today and while walking for the first 5 minutes on his usual treadmill
exercise at the gym he had the sudden onset of a left-sided chest pain that was 10 out of 10 and the most severe pain he has ever had. Patient stopped exercising and was able to sit down and rest and the pain improved on its own in less than 30
minutes. Patient was able to stand up and walk to his car and the pain returned on the lower level of about 1-2 out of 10 and he was able to make his way home without any increase in chest pain. Patient's drove him to the hospital and since
then he has had no recurrence of pain, he is absolutely pain and discomfort free at this time. Patient reports he has had intermittent 1-2 out of 10 chest pain on the left side happening on and off for the last 2 months. Pain does not always
happen with activity and patient was not planning on any evaluation until he had the pain today. Patient with known CAD as outlined above. Initial troponin was undetectable. Patient noted to have new onset atrial flutter on ECG, but interestingly
at rest is rate controlled at 72 bpm. Patient has a known history of paroxysmal A-fib and had previous PVI in 2013. Patient took his usual dose of Toprol-XL 50 mg daily today. I personally reviewed the EKG from his office visit on 01/22/2025 and he
is in SR at that time. Patient is not chronically on OAC by his own decision, he cites the reason of cost, but also in general does not want to be on a blood thinner.
-ECG reviewed by me looks like atrial flutter with HR [address] changes.
-Patient with exertional chest pain that improved with rest and symptoms of intermittent chest pain prior to today. He has known CAD. No acute ischemic change on ECG and initial troponin undetectable, but we made a plan to check a second troponin
and if that level is outside of the undetectable range then he is agreeable to cardiac catheterization. If the next troponin is also undetectable he would like to pursue outpatient stress test.
-No recurrence of pain, patient is pain-free at this time.
-Patient noted to be in atrial flutter on ECG, currently rate controlled on telemetry monitoring. Patient has known history of paroxysmal A-fib and this is his first documented recurrence of atrial arrhythmias since his successful PVI in 2013.
Patient would be interested in rhythm control which was highly successful for him in the past. Rhythm control strategies will be discussed in more detail once his chest pain is sorted out.
-Options for eventual repeat ablation reviewed very briefly, but patient would need to restart OAC.
-Patient reports he is reluctant to start OAC due to cost, but on talking more it sounds like in general he does not wish to be on OAC no matter what the cost.
-For now continue usual dose of Toprol-XL 50 mg daily and will arrange for outpatient EP evaluation pending above.
- Patient has a previous NICM with EF as low as 35 to 40% by echo on 10/21/2013 prior to his PVI that was performed on 11/26/2013. EF improved on YANY 08/04/2014. Patient then had recurrence of CM with EF of 25 to 30% by echo at [facility] back in 11/2019 for an cardiac cath at that time as outlined above. There is also concern for possible apical ballooning. Regardless EF improved to 40-45% by echo prior to discharge at that time and then echo on 06-15 showed EF of 50 to 55%.
[2025-05-26 13:30] LABS: Troponin I < 0.012 ng/ml
== END 2025-05-26 14:08 | disposition home or self-care (01) ==
LOC: EMR 08:53
PROVIDERS: Physician Assistant; EMERGENCY PHYSICIAN Emergency Medicine; FAMILY PHYSICIAN Family Medicine
DX: R07.9 Chest pain, unspecified (principal); I48.92 Unspecified atrial flutter; I25.10 Atherosclerotic heart disease of native coronary artery without angina pectoris; I48.0 Paroxysmal atrial fibrillation; I11.0 Hypertensive heart disease with heart failure; I50.32 Chronic diastolic (congestive) heart failure; E78.00 Pure hypercholesterolemia, unspecified; I25.5 Ischemic cardiomyopathy; K21.9 Gastro-esophageal reflux disease without esophagitis; Z79.82 Long term (current) use of aspirin; Z87.891 Personal history of nicotine dependence; I35.1 Nonrheumatic aortic (valve) insufficiency
CPT/HCPCS: 99284; 71046; 80053; 84443; 84484; 85025; 93005

== ENCOUNTER 2025-06-13 10:58 | Inpatient (IN) | payer OTHER, SELFPAY ==
[2025-06-13] VITALS (8 sets, daily range): BP systolic 135–155; BP diastolic 75–108; BMI 26.0; BMI 24.5
[2025-06-13 04:55] LABS: Hematocrit 40.4 % (39.0-52.0); Hemoglobin 13.1 g/dL (13.0-18.0); Mean Corp Hgb Conc. 32.4 g/dL (33.0-37.0); Mean Corpuscular Volume 91.8 fL (80.0-94.0); Nucleated Red Blood Cells % 0 % (-); Platelet Count 185 10^3/uL (130-400); Red Cell Dist. Width 14.7 % (11.5-14.5)
[2025-06-13 05:22] LABS: ALT (SGPT) 34 U/L (0-50); AST (SGOT) 35 U/L (17-59); Albumin 4.2 g/dl (3.5-5.0); Alkaline Phosphatase 119 U/L (38-126); Blood Urea Nitrogen 25 mg/dl (9-20); Calcium 9.4 mg/dl (8.4-10.2); Carbon Dioxide 27 mmol/L (22-30); Chloride 107 mmol/L (98-107); Estimated Creatinine Clearance 52 ml/min; Glucose 111 mg/dl (70-99); Potassium 4.7 mmol/L (3.5-5.1); Sodium 140 mmol/L (135-145); Total Protein 7.0 g/dl (6.3-8.2); eGFR > 60.00
--- NOTE | 2025-06-13 05:57 | ED.GENMED ---
History of Present Illness
<Kevyn Galvan MD, Resident - Last Filed: 06/13/25 08:31>
General
Chief Complaint: Breathing Problem
Source: patient and significant other
Exam Limitations: none
Time Seen by Provider: 06/13/25 05:57
History of Present Illness
History of Present Illness:
79-year-old male with past medical history of A-fib, atrial flutter, CHF, sleep apnea comes to the ED due to recent shortness of breath that began around 2 AM last night. Patient states that he felt like air was not going in his lungs. He says
that he does not have any chest pain, headaches but he has had pain in his right shoulder which he had fractured a few weeks back. He says the shortness of breath does not increase while laying down and has not noticed any increased swelling in his
bilateral lower extremities. He was here in the ED on May 26 due to chest pain and was diagnosed with Atrial flutter. Was supposed to follow-up with cardiology for nuclear stress test (sees Dr. Bartlett) but fell through his deck and fractured his
right shoulder. Had successful surgery for his right shoulder on May 30 has been managing his pain with Tylenol and Advil. He says that he has not had this kind of shortness of breath before but feels like might be due to a panic attack but he
is not sure. He has not been on any blood thinning medication for his A-fib due to personal choice as per previous cardiology note.
Past History
<Kevyn Galvan MD, Resident - Last Filed: 06/13/25 08:31>
Past History
ED Past Medical History: Arrthythmia (Paroxysmal atrial fibrillation, A-flutter), CHF, HTN, Hypercholesterolemia and Psychiatric
ED Past Surgical History: Cardiac (A. fib ablation 2013; Linq recorder implantation 2013 then removal August 2017.)
Social History
Tobacco: Smoker (2 packs a week)
Alcohol: Occasional
Drug: None
Personal:
Living: with family
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
Family History
Family History: Other (Noncontributory)
Review of Systems
<Kevyn Galvan MD, Resident - Last Filed: 06/13/25 08:31>
Review of Systems
Allergies reviewed?: Yes
All Other Systems: ROS reviewed and negative except as documented in HPI and ROS
Constitutional: Reports sleep disturbance; Denies fever, fatigue or chills
EENT: Reports no symptoms
Respiratory: Reports trouble breathing; Denies cough
Cardiac: Denies chest pain, diaphoresis or palpitations
ABD/GI: Reports no symptoms
: Reports no symptoms
Musculoskeletal: Reports joint pain (Right shoulder pain)
Skin: Reports other (Bruising around right shoulder)
Neurological: Reports no symptoms
Endocrine: Reports no symptoms
Hematologic/Lymphatic: Reports no symptoms
Psychiatric: Reports no symptoms
Phy Exam
<Kevyn Galvan MD, Resident - Last Filed: 06/13/25 08:31>
General Physical Exam
General Presentation: mild distress
General Skin: warm and dry
General Habitus: normal
General Mental: alert
General Hydration: appears well hydrated
Cardiovascular Exam
Cardiovascular Exam: no edema, no JVD and irregularly irregular
Pulmonary Exam
Pulmonary Exam: no rales
Breath Sounds: Wheeze: left upper
Gastrointestinal Exam
Gastrointestinal Exam: normal bowel sounds, non tender, soft and non distended
Neurological Exam
Neurological Exam: alert, oriented x3, no motor deficits and no sensory deficits
Musculoskeletal Exam
Musculoskeletal Exam: other (Right shoulder tenderness and bruising)
Skin Exam
Skin Exam: normal color and warm/dry
Psychiatric Exam
Psychiatric Exam: normal mood/affect
Scores
<Kevyn Galvan MD, Resident - Last Filed: 06/13/25 08:31>
Heart Failure Risk
Heart Failure Risk Score: Not Applicable
Course
<Kevyn Galvan MD, Resident - Last Filed: 06/13/25 08:31>
Orders/Labs/Results
Orders:
Orders
06/13/25 04:32
Electrocardiogram (*1) Urgent
Reason for Study: Other
Other Reason for Exam: Respiratory Distress
Cardiac Monitoring- Treatment ONCE
EKG- Treatment ONCE
IV Insert/Care/Rem.- Treatment PRN
O2 Therapy [RESP] Urgent
Titrate/Wean O2 to maintain O2 sat greater than (%): 93
Special Instructions: TO MAINTAIN CONTINUOUS O2 SATS >/= 93%
Pulse Ox/cont/shift [RESP] Urgent
Quantity: 1
Special Instructions: continuous pulse ox
06/13/25 04:34
Complete Blood Count/With Diff Urgent
Comprehensive Metabolic Panel Urgent
06/13/25 06:17
Acetaminophen [Tylenol] 1,000 mg PO NOW STA
06/13/25 06:31
Ibuprofen [Motrin] 400 mg PO NOW STA
Ipratropium/Albuterol Sulfate [Duoneb] 3 ml INH R NOW STA
06/13/25 06:32
CR Chest - 2 Views Urgent
Comment:
Reason For Exam: Shortness of breath
06/13/25 08:04
NT-proBNP Urgent
Troponin I Urgent
06/13/25 08:16
Furosemide [Lasix] 40 mg IV NOW STA
Abnormal Lab Results
06/13/25
04:34
RBC 4.40 L 10^6/uL
(4.70-6.10)
MCHC 32.4 L g/dL
(33.0-37.0)
RDW 14.7 H %
(11.5-14.5)
MPV 12.3 H fL
(7.4-10.4)
BUN 25 H mg/dl
(9-20)
Glucose 111 H mg/dl
(70-99)
06/13/25 04:34
06/13/25 04:34
Vital Signs
Initial and Last Documented VS:
Initial Vital Signs
Pulse Resp Pulse Ox
85 25 97
06/13/25 04:34 06/13/25 04:34 06/13/25 04:34
Last Documented Vital Signs
Temp Pulse Resp BP Pulse Ox
98.4 F 76 20 135/95 95
06/13/25 04:36 06/13/25 05:00 06/13/25 05:00 06/13/25 05:00 06/13/25 05:57
<Earl Zabala DO - Last Filed: 06/13/25 08:21>
Orders/Labs/Results
Orders:
Orders
06/13/25 04:32
Electrocardiogram (*1) Urgent
Reason for Study: Other
Other Reason for Exam: Respiratory Distress
Cardiac Monitoring- Treatment ONCE
EKG- Treatment ONCE
IV Insert/Care/Rem.- Treatment PRN
O2 Therapy [RESP] Urgent
Titrate/Wean O2 to maintain O2 sat greater than (%): 93
Special Instructions: TO MAINTAIN CONTINUOUS O2 SATS >/= 93%
Pulse Ox/cont/shift [RESP] Urgent
Quantity: 1
Special Instructions: continuous pulse ox
06/13/25 04:34
Complete Blood Count/With Diff Urgent
Comprehensive Metabolic Panel Urgent
06/13/25 06:17
Acetaminophen [Tylenol] 1,000 mg PO NOW STA
06/13/25 06:31
Ibuprofen [Motrin] 400 mg PO NOW STA
Ipratropium/Albuterol Sulfate [Duoneb] 3 ml INH R NOW STA
06/13/25 06:32
CR Chest - 2 Views Urgent
Comment:
Reason For Exam: Shortness of breath
06/13/25 08:04
NT-proBNP Urgent
Troponin I Urgent
06/13/25 08:16
Furosemide [Lasix] 40 mg IV NOW STA
Abnormal Lab Results
06/13/25
04:34
RBC 4.40 L 10^6/uL
(4.70-6.10)
MCHC 32.4 L g/dL
(33.0-37.0)
RDW 14.7 H %
(11.5-14.5)
MPV 12.3 H fL
(7.4-10.4)
BUN 25 H mg/dl
(9-20)
Glucose 111 H mg/dl
(70-99)
06/13/25 04:34
06/13/25 04:34
Vital Signs
Initial and Last Documented VS:
Initial Vital Signs
Pulse Resp Pulse Ox
85 25 97
06/13/25 04:34 06/13/25 04:34 06/13/25 04:34
Last Documented Vital Signs
Temp Pulse Resp BP Pulse Ox
98.4 F 76 20 135/95 95
06/13/25 04:36 06/13/25 05:00 06/13/25 05:00 06/13/25 05:00 06/13/25 05:57
<Kevyn Galvan MD, Resident - Last Filed: 06/13/25 08:31>
MDM/Problems Addressed
Differential Diagnosis Includes:
Fat embolus, pulmonary embolus, COPD, CHF, atelectasis, pneumonia, anxiety
MDM/Problems Addressed:
79-year-old male with past medical history of A-fib, atrial flutter, CHF, sleep apnea comes to the ED due to recent shortness of breath that began around 2 AM last night.
Patient's blood pressure and oxygen saturation within normal limits while here.
No abnormality seen on CBC and CMP
Will help manage his right shoulder pain while he is here as he has not taking any pain medication since last night, will give Tylenol and ibuprofen
Will get a chest x-ray to check for any acute cardiopulmonary process
Wheezing heard on left upper lung during exam, might be underlying COPD
Will give a treatment of DuoNeb and see if wheezing resolves
Patient feeling much better following DuoNeb treatment
CXR shows pulmonary edema (most likely due to CHF). Will get Troponin and proBNP, start IV Lasix and admit to hospital for further management
Chronic conditions affecting care: HTN, Arrhythmia and COPD (Possible underlying COPD)
<Kevyn Galvan MD, Resident - Last Filed: 06/13/25 08:31>
*Pulse Oximetry
SaO2: 95
Oxygen Mode of Delivery: Room air
Patient hypoxic: no
*Critical Care Note
Total Time (30-74mins, 75-104mins- exclusive of procedures): Not Applicable
ED Attending Note
<Kevyn Galvan MD, Resident - Last Filed: 06/13/25 08:31>
-
Portions of this chart may have been created with voice recognition software.� Occasional wrong word or��sound alike� substitutions may have occurred due to the inherent limitations of voice recognition software.
<Earl Zabala DO - Last Filed: 06/13/25 08:21>
ED Attending Note
Patient seen and examined by attending physician: Yes
I performed a history and physical exam of patient and discussed management with resident, I reviewed resident's note and agree with documented findings and plan of care.: Yes
ED Attending Note:
Note:
CHIEF COMPLAINT(S)
Difficulty in breathing and abnormal breathing pattern.
HISTORY OF PRESENT ILLNESS
The patient is an 79-year-old male who reports waking up at 2:30 AM with a change in his breathing pattern, distinct from his usual baseline. He expressed concerns about whether he was experiencing a panic attack. Approximately 10 days prior, the
patient had been seen in the emergency room following an episode of chest pain experienced while on a treadmill at the gym. The pain was intense, which led him to seek medical evaluation, but no significant cardiac issues were identified at the
time. He now attributes the chest pain to a muscular strain from weight lifting, as the pain has since resolved. He denies having any fever but continues to experience difficulty breathing.
PAST MEDICAL AND SURIGICAL HISTORY
The patient mentions he visited the emergency department about 10 days ago for chest pain.
SOCIAL HISTORY
The patient admits to smoking, with a consumption of approximately two packs per week, emphasizing that he does not smoke full cigarettes.
REVIEW OF SYSTEMS
- Respiratory: Reports a change in breathing pattern and difficulty breathing, denies fever.
- Cardiovascular: Previous chest pain while exercising, resolved.
- Musculoskeletal: Previous musculoskeletal chest pain, believes it to be from lifting weights.
PHYSICAL EXAM
General: Awake, alert, and oriented.
Neck: No jugular venous distention observed.
Respiratory: Scattered wheezes and a few crackles/rales at the bases bilaterally
Cardiovascular: Heart rhythm regular; patient noted to be in atrial flutter on athletic monitor.
Extremities: No edema in the lower extremities.
Neuro: No focal deficit
PROBLEM LIST
Acute Problems:
- Abnormal breathing pattern
- Scattered wheezes and crackles in the lungs
PLAN
- Administer breathing treatment to assess improvement in respiratory symptoms.
- Order a chest X-ray to evaluate pulmonary status.
- Review laboratory test results to identify any contributing factors.
DIFFERENTIAL DIAGNOSIS
The Differential Diagnosis includes, in no particular order and is not limited to:
- Chronic Obstructive Pulmonary Disease exacerbation
- Congestive heart failure
- Pulmonary embolism
- Atrial flutter complications
- Pneumonia
- Anxiety-related dyspnea
- Interstitial lung disease
- Asthma
- Musculoskeletal pain referred to the chest
- Hyperventilation syndrome
EKG
My independent EKG interpretation is:
- Time of EKG: Not specified
- Rhythm: Atrial flutter with variable AV block
- Heart rate: Ventricular rate of 78 bpm, Atrial rate around 300 bpm
- TX interval: Not specified
- QRS duration: Not specified
- QT interval: Not specified
- [place]: Left axis deviation
- Abnormalities: Nonspecific ST & T wave changes, No Q wave ischemic changes
Disposition:
SUMMARY OF ENCOUNTER
The patient, an 79-year-old male, presented to the emergency department with shortness of breath that began early in the morning. He reported a recent history of chest pain. On examination, he had rales and scattered wheezes. EMS noted significant
hypertension prior to hospital arrival. A chest X-ray showed signs of pulmonary interstitial edema. The patient was initially managed with diuresis using furosemide (Lasix) to address pulmonary edema. Despite initial respiratory distress, the
patient reported feeling better and somewhat stable after treatment.
DISPOSITION
Admit.
INDEPENDENT REVIEW OF LABS AND INTERPRETATION OF TESTS
- My independent review of CBC is normal hemoglobin and normal white blood cell count.
- My independent review of CMP is essentially normal, with normal potassium levels.
- My independent interpretation of the chest X-ray shows pulmonary interstitial edema.
MEDICAL DECISION MAKING
- Number and Complexity of Problems Addressed: Chronic conditions affecting care including the presence of atrial flutter, previous episodes of chest pain, and abnormal breathing patterns. Differential Diagnosis: Chronic Obstructive Pulmonary
Disease exacerbation, congestive heart failure, pulmonary embolism, atrial flutter complications, pneumonia, anxiety-related dyspnea, interstitial lung disease, asthma, musculoskeletal pain referred to the chest, hyperventilation syndrome.
- Data:
- Category 1: Tests and documents including the review of CBC, CMP, and chest X-ray.
- Category 2: My independent interpretation of the chest X-ray.
- Category 3: Consultation with cardiology was planned given the patient�s recent history and presentation.
- Risk: The decision to admit the patient was made due to the risk of complications from pulmonary interstitial edema and the need for continued diuresis and monitoring of cardiac status.
DIAGNOSIS
- Pulmonary interstitial edema (ICD-10: J81.0)
- Hypertensive emergency (ICD-10: I16.0)
- Atrial flutter (ICD-10: I48.92)
Discharge Plan
Departure
Patient Disposition: Admit
Date of Disposition: 06/13/25
Time of Disposition:
Admit to: Telemetry
Admit to doctor: Dr. Weeks
Presentation/result/management discussed w/ accepting MD/DO: Hospitalist
Patient with high blood pressure during this ER visit?: Yes
Condition: Good
Covid-19: Not Applicable
Discharge Problem:
Shortness of breath, Atrial fibrillation
Instructions: Shortness of Breath (Dyspnea) (DC)
Prescriptions:
No Action
paroxetine HCl 20 MG tablet
20 mg PO DAILY
aspirin 81 mg Tablet,Delayed Release (Dr/Ec)
81 mg PO DAILY
ibuprofen [Advil] 200 mg Tablet
200 mg PO Q6HPRN PRN (Reason: back pains)
metoprolol succinate 50 mg Tablet Extended Release 24 Hr
50 mg PO DAILY Qty: 30 0RF
omeprazole 40 mg Capsule,Delayed Release(Dr/Ec)
40 mg PO DAILY
coenzyme Q10 [CoQ-10] 100 mg Capsule
100 mg PO DAILY
atorvastatin 80 mg tablet
80 mg PO QPM Qty: 90 3RF
Neuriva Original 100-100 mg Capsule
1 cap PO DAILY
valsartan 320 mg tablet
160 mg PO DAILY
Referrals:
Hung Barrett DO [Family Provider, Family Practice] - Call in 1-3 days for appt
Referral Note: Please follow-up with your primary care physician regarding your shortness of breath
Iglesia Bartlett DO [Active, Cardiology] - Call in 1-3 days for appt
Referral Note: Please follow-up with Dr. Bartlett regarding cardiac stress test
Interventions
Interventions:
*Risk Screen - Suicide Last Done: 06/13/25 04:36
*General Assessment Last Done: 06/13/25 04:36
*Neglect/Abuse Screening Last Done: 06/13/25 04:36
*ED- Fall Risk Assessment Last Done: 06/13/25 04:36
*ED COVID-19 Vaccine History Last Done: 06/13/25 04:36
ED- Cardiac Assessment Last Done: 06/13/25 05:37
ED- Pulmonary Assessment Last Done: 06/13/25 05:37
Discharge Date and Time
Print Language: MOHAWK
[2025-06-13] MEDS: TYLENOL 1000 MG PO (06:30)
[2025-06-13] MEDS: MOTRIN 400 MG PO (06:34)
[2025-06-13] MEDS: DUONEB 3 ML INH ×2 (06:35→15:51)
[2025-06-13] MEDS: LASIX 40 MG IV ×2 (08:31→16:16)
[2025-06-13 09:10] LABS: Troponin I < 0.012 ng/ml
--- NOTE | 2025-06-13 10:41 | HPS.HSE ---
Family Physician
-
Family Physician: Hung Barrett
Chief Complaint
-
SOB
History of Present Illness
78M with paroxysmal A-fib, mitral regurg, HTN, and ICP, CHF, presenting with dyspnea. He notes that he woke up at 3 AM feeling short of breath all of a sudden, was not able to catch his breath despite trial of albuterol inhaler and came to ED. He
denies chest pain, palpitations, fevers, chills, nausea, vomiting, abdominal pain.
Medical History
Past Medical History
Past Medical History: Reports Arrhythmia (Atrial fibrillation with ablations), CHF and Hypercholesterolemia
Additional Past Medical History:
History of peptic ulcer disease, history of tubulovillous villous adenoma of the colon, acute on chronic diastolic heart failure
CAD with distal RCA occlusion, 40-50% mid RCA, mild to mod plaque in left coronary system by cath at [facility] 04/05/24
Ischemic cardiomyopathy, EF 25-30% by initial echo and then improved to 40-45% by echo prior to discharge from [facility] 11/2023
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
Paroxysmal atrial fibrillation
s/p PVI in 2013Not anticoagulated due to patient preference/cost
Chronic HFpEF
HTN
HLD
GERD
Former smoker
Past Surgical History: Reports Cardiac (Prior cardiac ablation cardioversions 2013 and 2012 bilateral cataract)
Social History
Tobacco: Smoker (2 packs/week, has been smoking since he was in his teens)
Alcohol: Occasional (2 drinks on Monday and 2 drinks on Monday)
Drug: None
Personal:
Living: With Family
Family History
Family History: Other (Denies any history of CAD in his mother or father)
Allergies / Home Medications
Allergies reflects when Allergies were last updated in [employer].
Home Medications with original date entered in [employer]
Allergy/Medication List:
Allergies
Allergy/AdvReac Type Severity Reaction Status Date / Time
No Known Allergies Allergy Verified 06/13/25 04:51
Home Medications
paroxetine HCl 20 mg tablet 20 mg PO DAILY 01/04/13
aspirin 81 mg tablet,delayed release 81 mg PO QPM 10/19/23
ibuprofen 200 mg tablet (Advil) 400 mg PO Q6H 10/19/23
metoprolol succinate 50 mg tablet,extended release 24 hr 50 mg PO DAILY #30 tabs 10/20/23
atorvastatin 80 mg tablet 80 mg PO QPM #90 tabs 04/05/24
coenzyme Q10 100 mg capsule (CoQ-10) 100 mg PO DAILY 04/05/24
omeprazole 40 mg capsule,delayed release 40 mg PO DAILY 04/05/24
Prevagen 1 cap PO DAILY 06/13/25
acetaminophen 325 mg tablet (Tylenol) 650 mg PO TID 06/13/25
omega 1-qpa-waz-fish oil 1,000 mg (120 mg-180 mg) capsule (Fish Oil) 1 cap PO QPM 06/13/25
valsartan 320 mg tablet 160 mg PO DAILY 06/13/25
Review of Systems
-
A 12 point ROS was completed and negative except as noted: Yes
Physical Exam
Vital Signs
Vital Signs
Temp Pulse Resp BP Pulse Ox
98.4 F 87 20 135/95 95
06/13/25 04:36 06/13/25 09:20 06/13/25 05:00 06/13/25 05:00 06/13/25 05:57
Physical Exam
General: Well Developed, Well Nourished and No Apparent Distress
HEENT: NormoCephalic, Moist mucous membranes and Atraumatic
Respiratory: Clear
Cardiac: S1/S2 and Regular Rhythm; No Murmur or Rub
GI: Soft, Non Tender, Non Distended and Normal Bowel Sounds; No Organomegaly
Rectal: Deferred by Provider
Musculoskeletal: No Clubbing, No Cyanosis and No Edema
Skin: No Rash
Neuro: Nonfocal/grossly intact
Laboratory Results
-
06/13/25 04:34
06/13/25 04:34
Laboratory Results
Total Bilirubin 1.3 mg/dl (0.2-1.3) 06/13/25 04:34
AST 35 U/L (17-59) 06/13/25 04:34
ALT 34 U/L (0-50) 06/13/25 04:34
Alkaline Phosphatase 119 U/L (38-126) 06/13/25 04:34
Troponin I < 0.012 ng/ml 06/13/25 08:28
Data Reviewed
-
Diagnostic Radiology: Report Reviewed by me
Lab Data: Labs Reviewed by me
Impression/Plan
-
IMPRESSION:
79M with CHF, CAD, presenting with dyspnea found to have acute CHF exacerbation.
PLAN:
1. Acute exacerbation of CHF
Elevated proBNP, XR showing bilateral interstitial pulmonary edema
Start Lasix 40 mg IV twice daily
Continue home BB and ARB
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
I's and O's, daily weights
O2 if needed
Cardiology consulted by ER
3. Paroxysmal A-fib/A-flutter
Rate mildly elevated
Resume home metoprolol 50 mg daily
Not on AC
3. CAD
Follows with cardiology aspirin/statin
4. GERD
PPI
5. Right shoulder fracture
S/p shoulder surgery 05/30/2025
As needed Tylenol, ibuprofen. Patient does not wish to use narcotics
6. Chronic tobacco use
Encouraged to quit smoking
As needed DuoNeb
DVT PPx
Lovenox
Full code
[2025-06-13] MEDS: TYLENOL 650 MG PO (12:08)
[2025-06-13] MEDS: TOPROL XL 50 MG PO (13:43)
[2025-06-13 14:20] LABS: Troponin I < 0.012 ng/ml
[2025-06-13 16:13] LABS: Hepatitis C Antibody Negative (Negative)
[2025-06-13] MEDS: LOVENOX 40 MG SC (17:45)
[2025-06-13] MEDS: ASPIR LOW (ENTERIC COATED) 81 MG PO (17:45)
[2025-06-13] MEDS: LIPITOR 80 MG PO (17:45)
[2025-06-13] MEDS: LOPRESSOR 5 MG IV (17:45)
--- NOTE | 2025-06-13 17:58 | PTCARENOTE ---
Pt received from ED and walked to bed from stretcher without assistance. AAOx3. Pt's HR tachy on the monitor. Pt denies chest pain. ECG obtained- pt in atrial flutter 110s-130s. notified. 50mg PO toporol XL ordered and administered. HR came down
briefly 90s-110s following administration. Pt complaining of SOB. PRN neb treatment administered. Hr now 140s on the monitor and rate remains aflutter. BP 130/74. notified and PRN lopressor ordered. Pt still denies chest pain. call boland in reach.
Will continue to monitor.
[2025-06-13 21:21] LABS: Troponin I < 0.012 ng/ml
[2025-06-13] MEDS: MELATONIN 5 MG PO (21:44)
[2025-06-14 03:00] VITALS: BP 141/84
[2025-06-14 07:48] VITALS: BP 149/84
[2025-06-14 07:57] LABS: Hematocrit 37.7 % (39.0-52.0); Hemoglobin 12.5 g/dL (13.0-18.0); Mean Corp Hgb Conc. 33.2 g/dL (33.0-37.0); Mean Corpuscular Volume 88.5 fL (80.0-94.0); Platelet Count 176 10^3/uL (130-400); Red Cell Dist. Width 14.6 % (11.5-14.5)
--- NOTE | 2025-06-14 08:05 | W.PN.HOSP.TC ---
Today's Communication/Plan
-
AF with RVR overnight to 140s improved to 80s after 5mg IV lopressor
Cont with metoprolol 50mg daily
cards c/s
Assessment / Plan
Assessment / Plan
78M with paroxysmal A-fib, mitral regurg, HTN, and ICP, CHF, presenting with dyspnea, found to be in Afib/flutter and to have Acute exacerbation of CHF.
1. Acute exacerbation of CHF
likley 2/2 AF with RVR
Elevated proBNP, XR showing bilateral interstitial pulmonary edema
Contiue Lasix 40 mg IV twice daily
Continue home BB and ARB
Trend troponin, radiation monitor
I's and O's, daily weights
O2 if needed
Cardiology consulted by ER
3. A flutter w/RVR
HR went to 140s 06/13, rec'd 5mg IV lopressor, improved to 80s
Paroxysmal A-fib/A-flutter
Rate now controlled
Cont home metoprolol 50 mg daily
Not on AC
3. CAD
Follows with cardiology
cont aspirin/statin
4. GERD
PPI
5. Right shoulder fracture
S/p shoulder surgery 05/30/2025
As needed Tylenol, ibuprofen. Patient does not wish to use narcotics
6. Chronic tobacco use
Encouraged to quit smoking
As needed DuoNeb
DVT PPx
Lovenox
Full code
Anticipated Discharge: 24 - 48 hours
Subjective/Interval History
-
Date of Service: June 14, 2025
Objective Data
-
Labs:
Laboratory Results
06/14/25
07:33
WBC 8.5
Hgb 12.5 L
Hct 37.7 L
Plt Count 176
Sodium Pending
Potassium Pending
Chloride Pending
Carbon Dioxide Pending
BUN Pending
Creatinine Pending
Glucose Pending
Calcium Pending
Vital Signs:
Vital Signs
Temp Pulse Resp BP Pulse Ox
97.6 F 81 17 149/84 96
06/14/25 07:48 06/14/25 07:48 06/14/25 07:48 06/14/25 07:48 06/14/25 07:48
I&O
06/13/25 06/14/25 06/15/25
06:59 06:59 06:59
Intake Total 600 / 600
Output Total 200 / 200
Balance 400 / 400
Review of Systems
-
All other systems: Reviewed and negative
Physical Exam
-
General: No Apparent Distress
HEENT: Moist Mucous Membranes, Anicteric and PERRLA
Respiratory: Clear to Auscultation; Negative Wheezes, Rales or Rhonchi
Cardiac: Regular Rhythm and S1/S2; Negative Murmur, Rub or Gallop
GI: Soft, Nontender, Nondistended and Normal Bowel Sounds
Musculoskeletal: No Edema
Skin: Warm and Dry; Negative Rash, Ulcers or Lesions
Neuro: Awake and AO x 3
Hematologic / Lymphatic: No Lymphadenopathy
Psych: Calm
Data Reviewed
-
Diagnostic Radiology: Report Reviewed by me
Labs: Labs Reviewed by me and Discussed with Patient
[2025-06-14] MEDS: LASIX 40 MG IV (08:18)
[2025-06-14] MEDS: TOPROL XL 50 MG PO (08:18)
[2025-06-14] MEDS: TYLENOL 650 MG PO (08:19)
[2025-06-14] MEDS: DIOVAN 160 MG PO (08:19)
[2025-06-14] MEDS: PAXIL 20 MG PO (08:19)
[2025-06-14] MEDS: PROTONIX 40 MG PO (08:19)
[2025-06-14 08:27] LABS: Blood Urea Nitrogen 22 mg/dl (9-20); Calcium 9.1 mg/dl (8.4-10.2); Carbon Dioxide 27 mmol/L (22-30); Chloride 107 mmol/L (98-107); Estimated Creatinine Clearance 70 ml/min; Glucose 99 mg/dl (70-99); HDL Cholesterol 26 mg/dl; LDL Cholesterol, Calculated 60 mg/dl; Magnesium 1.8 mg/dl (1.6-2.3); Potassium 4.1 mmol/L (3.5-5.1); Sodium 139 mmol/L (135-145); Very Low Density Lipoprotein 18 mg/dl (0-30); eGFR > 60.00
--- NOTE | 2025-06-14 09:12 | CON.CAR ---
Addendum entered and electronically signed by Ruben Godfrey MD 06/14/25 11:07:
I saw and examined the patient.
The Product Safety Technician's note was reviewed and I agree with the note.
Comment:
GEN: No distress, awake, Ox3
HEENT: supple, anicteric, mmm
LUNGS: scatt rhonchi
CV: Irreg, S1/S2, 1/6 syst LSB, S3+
ABD: soft, BS+, NT/ND
EXT: No edema
NEURO: Gross non-focal
SKIN: No rash
PLan:
79-year-old male with past medical history of mixed ischemic/nonischemic cardiomyopathy, paroxysmal atrial flutter, history of PVI 2013, coronary artery disease with distal RCA occlusion, hypertension, hyperlipidemia presents with shortness of
breath, fatigue, dyspnea on exertion, and orthopnea. Upon arrival in the emergency room he is found to be back in atrial flutter with mildly elevated proBNP of 2100 and acute on chronic heart failure with preserved ejection fraction. He also had a
recent fall on his deck where he injured his right humerus which has marked erythema.
He was diuresed with IV Lasix and is clinically improved. His ventricular rates are now adequately controlled. His ejection fraction has waxed and waned previously over the past several years. Previous cardiomyopathy have been suspected due to
atrial arrhythmias.
He had a cardiac cath in 2023 which revealed stable moderate nonobstructive coronary artery disease.
Plan will be to increase metoprolol to 50 mg p.o. twice daily. Stop aspirin and start Eliquis 5 mg p.o. twice daily.
We discussed YANY cardioversion but he is adamant about going home and coming back for this. He is clinically stable and I would be comfortable with him being discharged and we will arrange outpatient YANY cardioversion next week. We will reevaluate
his ejection fraction during YANY
He has lost significant amounts of weight. Will discharge on Lasix 40 mg daily. CHF education. He prefers to discuss SGLT2 inhibitors with Dr. Bartlett as an outpatient.
Would stop aspirin with severe bruising on the right upper extremity. Hemoglobin at 12.5.
Continue aspirin, atorvastatin, and metoprolol for coronary arteries. Card troponins are negative.
Blood pressure is modestly elevated. Continue valsartan 160 mg daily we are increasing Toprol to 50 mg p.o. twice daily.
Original Note:
Consultation
Consultation Request
Date/Time Consultation Requested: 06/13/2025 at 1016
Date/Time Consultation Performed: 06/14/2025 at 0900
Requesting Provider: Dr. Weeks
Performing Provider: Dr. Godfrey
Reason for Consultation: Acute HF, atrial flutter
Medical History
-
History of Present Illness:
Patient came to the ER early yesterday morning when he awoke SOB and was admitted with acute HF and cardiology is consulted. Patient was seen in the ER for chest pain on 05/26/2025 and following serially undetectable troponin levels he was discharged
to home. During his ER visit he was noted to have recurrence of atrial flutter, but was rate controlled and management was deferred until his chest pain was worked up. Our office called the patient to arrange for stress test and unfortunately on
05/30/2025 he had an accident where he fell through the decking on his home and broke his right shoulder pushing back stress test to July. In the meantime patient says that he noticed some PALOMINO, but what he thinks is rather suddenly he awoke at 3
AM on Monday morning with symptoms of orthopnea and PND and came to the ER. Patient reports symptomatic improvement with Lasix that 40 mg IV BID since admission. Patient was not taking a diuretic prior to admission. Last echo was 05/24/2024 and EF
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
was treated at [facility] in [place]. No recurrence of chest pain since ER visit 05/26/2025.
PMH:
CM
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
EF 50 to 55% by last echo 05/24/24
Paroxysmal atrial flutter
s/p CTI flutter ablation 02/2013
Recurrence noted at time of ER visit 05/26/2025
Not anticoagulated due to patient preference/cost
PAT
s/p A. tach ablation at time of PVI in 2013
Paroxysmal atrial fibrillation
s/p PVI in 2013
CAD with distal RCA occlusion, 40-50% mid RCA, mild to mod plaque in left coronary system by cath at [facility] 04/05/24
HTN
HLD
GERD
Former smoker
Past Medical History
Past Medical History: Other (in HPI)
Past Surgical History: Cardiac (PVI 2013)
Social History
Tobacco: Smoker
Alcohol: Other (drinks 3-5 days a week)
Drug: None
Personal:
Living: With Family
Employment: Retired
Family History
Family History: Other (mother with emphysema)
Allergies / Home Medications
Allergy/AdvReac Type Severity Reaction Status Date / Time
No Known Allergies Allergy Verified 06/13/25 04:51
�Medication �Instructions �Recorded �Confirmed �Type
paroxetine HCl 20 mg tablet 20 mg PO DAILY 01/04/13 06/13/25 History
aspirin 81 mg tablet,delayed 81 mg PO QPM 10/19/23 06/13/25 History
release
ibuprofen 200 mg tablet (Advil) 400 mg PO Q6H 10/19/23 06/13/25 History
metoprolol succinate 50 mg 50 mg PO DAILY #30 tabs 10/20/23 06/13/25 Rx
tablet,extended release 24 hr
atorvastatin 80 mg tablet 80 mg PO QPM #90 tabs 04/05/24 06/13/25 Rx
coenzyme Q10 100 mg capsule 100 mg PO DAILY 04/05/24 06/13/25 History
(CoQ-10)
omeprazole 40 mg capsule,delayed 40 mg PO DAILY 04/05/24 06/13/25 History
release
Prevagen 1 cap PO DAILY 06/13/25 06/13/25 History
acetaminophen 325 mg tablet 650 mg PO TID 06/13/25 06/13/25 History
(Tylenol)
omega 9-zup-jiv-fish oil 1,000 mg 1 cap PO QPM 06/13/25 06/13/25 History
(120 mg-180 mg) capsule (Fish Oil)
valsartan 320 mg tablet 160 mg PO DAILY 06/13/25 06/13/25 History
Review of Systems
-
History Source: Patient and Family ( at bedside)
All other systems: Negative unless noted
Physical Exam
Vital Signs
Temp Pulse Resp BP Pulse Ox
97.6 F 81 17 149/84 96
06/14/25 07:48 06/14/25 07:48 06/14/25 07:48 06/14/25 07:48 06/14/25 07:48
GEN: NAD. AAOx3
HEENT: EOMI, MMM
LUNGS: RA. CTA B/L, no wheeze
CV: Atrial flutter on tele. Reg irreg, S1/S2, no murmur
ABD: soft, BS+, NT, ND
EXT: No clubbing, cyanosis, lesions or edema B/L
NEURO: Gross non-focal
SKIN: Warm, dry and pink. No rash
Lab Results
06/14/25 07:33
06/14/25 07:33
Troponin I < 0.012 ng/ml 06/13/25 20:48
Ypg-G-Snfndkrcwfs Pept 2160 pg/ml 06/13/25 08:28
Impression / Plan
-
PCP: Dr. Barrett
Primary Graduate Assistant: Dr. Bartlett
Assessment:
Admitted with acute HF 06/13/2025
Recent ER visit for recurrent atrial flutter, chest pain and undetectable troponin 05/26/2025
Acute HF unknown EF
EF as low as 25 to 30% by echo 11/2023 and then improved to 50 to 55% by last known echo 05/24/2024
CM
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
EF 50 to 55% by last echo 05/24/24
Paroxysmal atrial flutter
s/p CTI flutter ablation 02/2013
Recurrence noted at time of ER visit 05/26/2025
Not anticoagulated due to patient preference/cost
PAT
s/p A. tach ablation at time of PVI in 2013
Paroxysmal atrial fibrillation
s/p PVI in 2013
CAD with distal RCA occlusion, 40-50% mid RCA, mild to mod plaque in left coronary system by cath at [facility] 04/05/24
HTN
HLD
GERD
Former smoker
Echo 10/21/2013: EF 35 to 40%, moderate global hypokinesis
YANY 08/04/2014: EF 55 to 60%
ECHO 11/2023 at [facility]: EF 25 to 30%, apical ballooning with apical dyskinesia and adjacent foster akinetic, basal wall circumferentially mild to moderately hypokinetic, mild AR, mild MR, trace to mild TR, peak PA pressure 40 mmHg.
Echo 11/2023 at [facility]: EF 40-45% prior to DC, exact date unknown
Echo 05/24/2024: EF 50 to 55%, normal RV size and function, mild MR, mild aortic insufficiency
Plan:
-Patient came to the ER early yesterday morning when he awoke SOB and was admitted with acute HF and cardiology is consulted. Patient was seen in the ER for chest pain on 05/26/2025 and following serially undetectable troponin levels he was
discharged to home. During his ER visit he was noted to have recurrence of atrial flutter, but was rate controlled and management was deferred until his chest pain was worked up. Our office called the patient to arrange for stress test and
unfortunately on 05/30/2025 he had an accident where he fell through the decking on his home and broke his right shoulder pushing back stress test to July. In the meantime patient says that he noticed some PALOMINO, but what he thinks is rather
suddenly he awoke at 3 AM on Monday morning with symptoms of orthopnea and PND and came to the ER. Patient reports symptomatic improvement with Lasix that 40 mg IV BID since admission. Patient was not taking a diuretic prior to admission. Last
echo was 05/24/2024 and EF was 50 to 55% at that time, but EF has been lower at 35 to 40% in the setting of atrial arrhythmia in 2012, EF improved by echo in 2013 and then EF dropped again to 25 to 30% by echo 11/2023 in the setting of possible apical
ballooning syndrome that was treated at [facility] in [place]. No recurrence of chest pain since ER visit 05/26/2025.
-ECG reviewed by me shows rate controlled atrial flutter. Telemetry reviewed by me also shows atrial flutter that is more rapid up to 147 bpm with activity
-Patient with acute HF unknown EF. EF previously as low as 35 to 40% in the setting of atrial arrhythmia in 2012, and then improved to 55 to 60% by repeat echo in 2013. 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
[facility] 11/2023 and EF was 25 to 30% at that time with evidence of moderate CAD without intervention by cardiac cath at that time, but of note they repeated the echo just prior to his discharge and the EF had improved to 40 to 45%.
Patient then had echo at [facility] 05/2024 and EF was stable and actually even a bit more improved to 50 to 55%.
-Reviewed with the patient that I am concerned that with recurrent atrial arrhythmia he may have recurrent cardiomyopathy, but patient does not want to stay in the hospital for an echo. At patient request we will arrange for an outpatient echo
-Patient has symptomatically improved with Lasix 40 mg IV BID. Patient was not taking a diuretic prior to admission. Recommend Lasix 40 mg PO daily upon discharge to home and he tells me he is agreeable to taking this.
-Outpatient dose of Toprol-XL 50 mg daily has been increased to 50 mg BID to help better control HR. Telemetry review shows that most of the time HR is greater than 110 bpm.
-Outpatient dose of valsartan 160 mg daily will be continued
-EF unknown, pending echo we can further tailor GDMT
-We discussed short-term and long-term plans for rhythm control. Patient reports he is interested in rhythm control therapy over rate control strategy.
-Patient is agreeable to an outpatient YANY/CV, I offered YANY/CV on Monday, but he does not wish to stay in the hospital until then. We discussed that a prior authorization from his insurance has to be obtained and so he will not be able to return
on Monday for YANY/CV and it would likely be delayed until later in the week. The cardiology office will work on coordinating this, Monday and I have sent a task to the office in the meantime.
-Patient must start OAC and he is agreeable. Patient reports he is reluctant to take OAC due to cost, but on talking more it sounds like in general he does not wish to be on OAC no matter what the cost. Regardless patient says he is willing to
take for now. Start Eliquis 5 mg BID (age 79, Cre 0.9, wt 79.57 kg). Patient can use the free 30-day coupon to fill his initial Rx and after that he will have to pay his co-pay.
-Patient would then like to follow-up with Dr. Valeriy Tejada in the office to discuss repeat ablation. Patient had CTI for atrial flutter in 2012 and then had PVI and atrial tachycardia ablations for A-fib and A. tach respectively in 2013.
-Pending outcome of arrhythmia treatment the patient will also eventually need stress test which is currently scheduled for July. Stress test had to be delayed due to his right shoulder fracture.
[2025-06-14] MEDS: LOPRESSOR 5 MG IV (10:51)
--- NOTE | 2025-06-14 11:19 | W.PN.UPDATE ---
Update Note
Progress Note Update
E-scribed Lasix, Toprol XL higher dose and Eliquis. I also tubed up a free 30 day card for Eliquis
--- NOTE | 2025-06-14 11:58 | W.DCSUMMARY ---
Discharge Summary
Discharge Data
Date of Admission: 06/13/25
Date of Discharge: 06/14/25
-
Pending Results: No
Hospital Course
Attending physician on day of discharge:
Stacy Weeks MD
Admission diagnosis:
Discharge diagnosis:
Acute exacerbation of CHF
Secondary diagnoses:
Paroxysmal A-fib/a flutter
CAD
Right shoulder fracture
GERD
Chronic tobacco use
Consultations:
Cardiology
Procedures:
Hospital course:
79M with CAD, paroxysmal A-fib/flutter, CHF, presented with dyspnea, found to have CHF exacerbation. Admitted for IV Lasix, developed a flutter with RVR which was treated with IV metoprolol and heart rate improved to 80s. CHF exacerbation may have
been precipitated by RVR at home. His symptoms improved and he was transitioned to oral medication. He was seen by cardiology who managed his medications and are discharging him with follow-up for YANY/cardioversion.
Physical exam on discharge:
Gen: NAD
HEENT: PERRLA, EOMI, MMM, neck supple
Cards: Irregular, no M/G/R
Resp: Lungs CTAB, no W/R/R
GI: soft, NT/ND/NABS
MSK: No edema
Skin: warm and dry, no rash, ulcer or lesions
Heme: No LAD
Psych: Calm
Neuro: AAOx3
Discharge disposition: Home
Discharge Plan
-
Patient Disposition: Home (Routine Discharge)
Discharge Diagnosis/Procedures: Acute heart failure, recurrent atrial flutter
Condition: Good
Diet: 2 Gram Sodium
Activity: No strenuous activity
Driving Restrictions: As prior to admission
Bathing Restrictions: None
Specialty Instructions: Weigh Daily- Call MD for wt gain/loss 3 lbs overnight/5 lbs in 1 week
Referrals:
Hung Barrett, DO [Family Provider, Family Practice]
Iglesia Bartlett DO [Active, Cardiology]
Referral Note: You are scheduled to see Dr. Bartlett at the [facility] office on 07/31/2025 at 10 AM. In the meantime the office is arranging for an outpatient YANY/CV (transesophageal echocardiogram and cardioversion) to be performed
this upcoming week and then you will see Dr. Valeriy Chaves in the office to discuss another ablation, we will call you with that appt.
Additional Discharge Medication Instructions: - Stop taking aspirin
- Start taking Eliquis 5 mg twice daily, you must be compliant with Eliquis in order to have planned cardioversion and ablation. You can then discuss long-term need for anticoagulation when you see Dr. Valeriy Chaves in the office
- Increase your dose of Toprol-XL (metoprolol succinate) to 50 mg twice daily
- Start taking Lasix (furosemide) 40 mg once a day as a diuretic
Prescriptions:
New
Eliquis 5 mg tablet
5 mg PO BID Qty: 60 3RF
metoprolol succinate [Toprol XL] 50 mg tablet extended release 24 hr
50 mg PO BID Qty: 60 11RF
furosemide [Lasix] 40 mg tablet
40 mg PO DAILY Qty: 30 11RF
Continued
paroxetine HCl 20 MG tablet
20 mg PO DAILY
ibuprofen [Advil] 200 mg Tablet
400 mg PO Q6H
omeprazole 40 mg Capsule,Delayed Release(/Ec)
40 mg PO DAILY
coenzyme Q10 [CoQ-10] 100 mg Capsule
100 mg PO DAILY
atorvastatin 80 mg tablet
80 mg PO QPM Qty: 90 3RF
valsartan 320 mg tablet
160 mg PO DAILY
acetaminophen [Tylenol] 325 mg Tablet
650 mg PO TID
omega 1-ajw-anc-fish oil [Fish Oil] 1,000 (120-180) mg Capsule
1 cap PO QPM
Prevagen
1 cap PO DAILY
Discontinued
aspirin 81 mg Tablet,Delayed Release (Dr/Ec)
81 mg PO QPM
metoprolol succinate 50 mg Tablet Extended Release 24 Hr
50 mg PO DAILY Qty: 30 0RF
Discharge Orders:
Discharge Patient (As Directed); Ordered 06/14/25
Ordered By: Stacy Weeks
Discharge Date and Time
Print Language: PANAMANIAN
--- NOTE | 2025-06-14 12:52 | CM ---
Patient seen at bedside
IMM explained & signed. In chart
IA completed
Lives with 2 story home, 2 [address] flight to bed/bath
plof: independent
denies dme
no vn/rehab
pcp: Dr. Barrett
pharmacy: [facility], [facility]
PLAN: Home, no needs
to transport
== END 2025-06-14 13:15 | disposition home or self-care (01) | DRG 291 ==
LOC: 3 WEST ACU 10:58
PROVIDERS: Emergency Medicine; ADMITTING PHYSICIAN Internal Medicine; EMERGENCY PHYSICIAN Emergency Medicine; FAMILY PHYSICIAN Family Medicine; OTHER PHYSICIAN Internal Medicine Cardiovascular Disease
DX: I11.0 Hypertensive heart disease with heart failure (principal); I50.33 Acute on chronic diastolic (congestive) heart failure; I16.1 Hypertensive emergency; I48.92 Unspecified atrial flutter; I47.19 Other supraventricular tachycardia; I42.8 Other cardiomyopathies; I48.0 Paroxysmal atrial fibrillation; G47.30 Sleep apnea, unspecified; E78.00 Pure hypercholesterolemia, unspecified; F17.210 Nicotine dependence, cigarettes, uncomplicated; I34.0 Nonrheumatic mitral (valve) insufficiency; I25.10 Atherosclerotic heart disease of native coronary artery without angina pectoris; I25.5 Ischemic cardiomyopathy; K21.9 Gastro-esophageal reflux disease without esophagitis; S42.91XD Fracture of right shoulder girdle, part unspecified, subsequent encounter for fracture with routine healing; X58.XXXD Exposure to other specified factors, subsequent encounter; Z82.5 Family history of asthma and other chronic lower respiratory diseases; Z87.11 Personal history of peptic ulcer disease; Z86.0100 Personal history of colon polyps, unspecified; Z79.82 Long term (current) use of aspirin
CPT/HCPCS: 71046; 80048; 80053; 80061; 83735; 83880; 84484; 85025; 85027; 86803; 93005; 94640; 96374; 99285

== ENCOUNTER 2025-06-19 07:05 | Day surgery (SDC) | payer OTHER, SELFPAY ==
--- NOTE | 2025-06-19 09:04 | ITS.CL.CARDI ---
[employer] Consult[employer] - Cardioversion
Cardioversion
Procedure Report:
Date of Procedure: 06/19/25
Procedure: Cardioversion
Indication: Symptomatic atrial flutter
Performing Physician: Sunny Godfrey MD
Technique: The patient was brought to the holding area. Signed informed consent was obtained. A time out was called and performed. The patient was anesthetized by the anesthesia service. Anticoagulation status was reviewed and appropriate. R2 pads
were placed anteriorly and posteriorly. A 200 J synchronized biphasic shock restored normal sinus rhythm without significant bradycardia. There were no complications.
Conclusion: Uncomplicated cardioversion from atrial flutter to sinus rhythm.
Recommendation: Routine post cardioversion care. 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
== END 2025-06-19 09:53 | disposition home or self-care (01) ==
LOC: CATH 07:05
PROVIDERS: ATTENDING PHYSICIAN Internal Medicine Cardiovascular Disease; FAMILY PHYSICIAN Family Medicine; OTHER PHYSICIAN Nuclear Medicine Nuclear Cardiology
DX: I48.92 Unspecified atrial flutter (principal); Z79.01 Long term (current) use of anticoagulants; I08.3 Combined rheumatic disorders of mitral, aortic and tricuspid valves; I48.91 Unspecified atrial fibrillation; I49.1 Atrial premature depolarization; I70.0 Atherosclerosis of aorta; I08.8 Other rheumatic multiple valve diseases
CPT/HCPCS: 93312; 93320; 93325; 92960; 93005

== ENCOUNTER → 2025-07-28 07:23 | Outpatient (REF) | payer OTHER, SELFPAY | LOC: HWRCS 07:23 | PROVIDERS: ATTENDING PHYSICIAN Nuclear Medicine Nuclear Cardiology; FAMILY PHYSICIAN Family Medicine | DX: I25.10 Atherosclerotic heart disease of native coronary artery without angina pectoris (principal); R07.89 Other chest pain; I48.3 Typical atrial flutter | CPT/HCPCS: 78452; 93017; A9500; J2785 ==

== ENCOUNTER 2025-08-26 04:11 | Emergency (ER) | payer OTHER, SELFPAY ==
[2025-08-26 04:16] VITALS: BP 160/92
[2025-08-26 04:28] VITALS: BMI 24.2
[2025-08-26 04:37] VITALS: BP 153/100
--- NOTE | 2025-08-26 04:43 | ED.GENMED ---
History of Present Illness
<Luz Wilson PA-C - Last Filed: 08/26/25 10:04>
General
Chief Complaint: Breathing Problem
Source: patient
Exam Limitations: none
Time Seen by Provider: 08/26/25 04:23
Nursing documentation reviewed up to this point in time: agreed with
History of Present Illness
History of Present Illness:
The patient is an 79-year-old male hx of afutter, CHF, HTN, HLP, who presented with symptoms of congestion, labored breathing, and shortness of breath for the past few days. He reports experiencing a sensation of chest tightness yesterday,
describing it occurring after episode of dry coughing. These symptoms were noted to have been more severe yesterday morning and have slightly improved. The patient notes dry cough but describes having a dry cough and frequent clearing of the throat,
suggesting possible mucus presence. He attributes some symptoms to allergies. He also experiences a constant runny nose and believes allergies are contributing to his symptoms. He denies having a fever and has not been in contact with anyone having
similar symptoms, except for a bernal.
The patient stopped taking his anticoagulant medication, Eliquis (Apixaban), due to cost concerns approximately a week ago. He has managed Atrial Fibrillation (AFib) in the past and has undergone multiple cardiac ablations. He describes his history
with AFib and shares his financial struggles related to the medication cost. He has an upcoming appointment with his hr coordinator next month to discuss restarting medications.
He denies hx of COPD or asthma. He denies sick contacts.
He reports that lying flat makes his shortness of breath worse.
Patient is supposed to be taking 40 mg of lasix daily but has only been taking 20 mg because he does not like using the bathroom frequently.
Past History
<Luz Wilson PA-C - Last Filed: 08/26/25 10:04>
Past History
ED Past Medical History: Arrthythmia (Paroxysmal atrial fibrillation, A-flutter), CHF, HTN, Hypercholesterolemia and Psychiatric
ED Past Surgical History: Cardiac (A. fib ablation 2013; Linq recorder implantation 2013 then removal August 2017.)
Social History
Tobacco: Smoker (2 packs a week)
Alcohol: Occasional
Drug: None
Personal:
Living: with family
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
Family History
Family History: Other (Noncontributory)
Phy Exam
<Luz Wilson PA-C - Last Filed: 08/26/25 10:04>
Physical Exam
Physical Exam:
General: Alert, no acute distress.
Skin: Warm, dry.
Head: Normocephalic, atraumatic.
Neck: Supple, trachea midline.
Eyes, Ears, Nose, Mouth, and Throat: Oral mucosa moist.
Cardiovascular: Regular rate. Normal peripheral perfusion, no edema.
Respiratory: Increased respiratory rate. No crackles heard on exam no wheezes.
Gastrointestinal: Abdomen nondistended.
Back: Normal range of motion, normal alignment.
Musculoskeletal: Normal ROM, normal strength.
Neurological: Alert and oriented to person, place, time, and situation, no focal neurological deficit observed.
Psychiatric: Cooperative, appropriate mood, and affect.
Scores
<Luz Wilson PA-C - Last Filed: 08/26/25 10:04>
Heart Failure Risk
Heart Failure Risk Score: Not Applicable
Course
<PRANAY Jennings Last Filed: 08/26/25 10:04>
Orders/Labs/Results
Orders:
Orders
08/26/25 04:41
Electrocardiogram (*1) Urgent
Reason for Study: Shortness of Breath
08/26/25 04:42
EKG- Treatment ONCE
08/26/25 04:54
COVID-19 Antigen Urgent
Source: Nasal Swab
Complete Blood Count/With Diff Urgent
Comprehensive Metabolic Panel Urgent
NT-proBNP Urgent
Troponin I Urgent
Influenza A+B Rapid Molecular Urgent
SUSAN Source: Nasal Swab
Specimen Description:
08/26/25 05:49
CR Chest - 2 Views Urgent
Comment:
Reason For Exam: shortness of breath
08/26/25 05:59
Ipratropium/Albuterol Sulfate [Duoneb] 3 ml .ROUTE .STK-MED ONE
Ipratropium/Albuterol Sulfate [Duoneb] 3 ml INH R NOW STA
08/26/25 07:30
Furosemide [Lasix] 40 mg IV NOW STA
Abnormal Lab Results
08/26/25
04:54
MCHC 31.4 L g/dL
(33.0-37.0)
MPV 11.4 H fL
(7.4-10.4)
Absolute Neuts (auto) 8.2 H 10^3/uL
(1.4-6.5)
Absolute Monos (auto) 0.7 H 10^3/uL
(0.1-0.6)
Neutrophils % 77.8 H %
(42.2-75.2)
Lymphocytes % 14.0 L %
(20.5-51.1)
Glucose 119 H mg/dl
(70-99)
Total Bilirubin 1.9 H mg/dl
(0.2-1.3)
08/26/25 04:54
08/26/25 04:54
Vital Signs
Initial and Last Documented VS:
Initial Vital Signs
Temp Pulse Resp BP Pulse Ox
97.9 F 70 24 160/92 97
08/26/25 04:16 08/26/25 04:16 08/26/25 04:16 08/26/25 04:16 08/26/25 04:16
Last Documented Vital Signs
Temp Pulse Resp BP Pulse Ox
97.9 F 83 21 153/93 94
08/26/25 04:16 08/26/25 07:48 08/26/25 07:45 08/26/25 07:48 08/26/25 07:45
<Meet Pena, DO - Last Filed: 08/26/25 07:32>
Orders/Labs/Results
Orders:
Orders
08/26/25 04:41
Electrocardiogram (*1) Urgent
Reason for Study: Shortness of Breath
08/26/25 04:42
EKG- Treatment ONCE
08/26/25 04:54
COVID-19 Antigen Urgent
Source: Nasal Swab
Complete Blood Count/With Diff Urgent
Comprehensive Metabolic Panel Urgent
NT-proBNP Urgent
Troponin I Urgent
Influenza A+B Rapid Molecular Urgent
SUSAN Source: Nasal Swab
Specimen Description:
08/26/25 05:49
CR Chest - 2 Views Urgent
Comment:
Reason For Exam: shortness of breath
08/26/25 05:59
Ipratropium/Albuterol Sulfate [Duoneb] 3 ml .ROUTE .STK-MED ONE
Ipratropium/Albuterol Sulfate [Duoneb] 3 ml INH R NOW STA
08/26/25 07:30
Furosemide [Lasix] 40 mg IV NOW STA
Abnormal Lab Results
08/26/25
04:54
MCHC 31.4 L g/dL
(33.0-37.0)
MPV 11.4 H fL
(7.4-10.4)
Absolute Neuts (auto) 8.2 H 10^3/uL
(1.4-6.5)
Absolute Monos (auto) 0.7 H 10^3/uL
(0.1-0.6)
Neutrophils % 77.8 H %
(42.2-75.2)
Lymphocytes % 14.0 L %
(20.5-51.1)
Glucose 119 H mg/dl
(70-99)
Total Bilirubin 1.9 H mg/dl
(0.2-1.3)
08/26/25 04:54
08/26/25 04:54
Vital Signs
Initial and Last Documented VS:
Initial Vital Signs
Temp Pulse Resp BP Pulse Ox
97.9 F 70 24 160/92 97
08/26/25 04:16 08/26/25 04:16 08/26/25 04:16 08/26/25 04:16 08/26/25 04:16
Last Documented Vital Signs
Temp Pulse Resp BP Pulse Ox
97.9 F 83 21 153/93 94
08/26/25 04:16 08/26/25 07:48 08/26/25 07:45 08/26/25 07:48 08/26/25 07:45
<Luz Wilson PA-C - Last Filed: 08/26/25 10:04>
MDM/Problems Addressed
Differential Diagnosis Includes:
The Differential Diagnosis includes, in no particular order and is not limited to:
Pneumonia
Heart Failure
Chronic Obstructive Pulmonary Disease (COPD)
Asthma
Atrial Fibrillation
Upper Respiratory Infection
Allergic Rhinitis
Costochondritis
Gastroesophageal Reflux Disease (GERD)
MDM/Problems Addressed:
The patient is an 79-year-old male hx of aflutter, CHF, HTN, HLP, who presented with symptoms of congestion, labored breathing, and shortness of breath for the past few days. An episode of chest tightness did occur yesterday after coughing fit. He
has associated runny nose and dry cough. Symptoms worse with lying flat. Symptoms did improve with duoneb. On exam, he is not fluid overloaded. He went for CXR which showed pulmonary edema no evidence of pleural effusion or pneumo. Discussed case
with ED attending. Patient requesting to go home. BNP bumped from baseline. Suspect CHF exacerbation secondary to viral syndrome. Pt given IV dose lasix and advised to increase his lasix dose. Will be discharged with heart failure outpatient hot
line. Discussed importance of resuming eliquis patient will follow up with cards
Chronic conditions affecting care:
CHF, a flutter/fib
Acute Exacerbation and/or Progression of Chronic Illness:
CHF
<Luz Wilson PA-C - Last Filed: 08/26/25 10:04>
*Pulse Oximetry
SaO2: 97
Oxygen Mode of Delivery: Room air
Patient hypoxic: no
*EKG
Interpreted by ED Provider?: Yes
EKG Intrepretation Date: 08/26/25
Interpretation: abnormal
Heart Rate: 82
Rate: normal
Rhythm: atrial flutter
*Critical Care Note
Total Time (30-74mins, 75-104mins- exclusive of procedures): Not Applicable
Data Reviewed
Review of Other/Old Records Reveals: Records
ED Attending Note
<Luz Wilson PA-C - Last Filed: 08/26/25 10:04>
-
Portions of this chart may have been created with voice recognition software.� Occasional wrong word or��sound alike� substitutions may have occurred due to the inherent limitations of voice recognition software.
<Meet Pena DO - Last Filed: 08/26/25 07:32>
ED Attending Note
Patient seen and examined by attending physician: Yes
I performed the substantive portion of visit, reviewed & personally made and approve the management plan that is documented in note by myself or RADHA.: Yes
ED Attending Note:
Seen with PA examined independently 79-year-old male patient Dr. Bartlett with heart failure presents with shortness of breath proBNP chest x-ray noted looks well he is anticoagulated will double his diuretic appears to be a candidate for close
outpatient follow-up
Discharge Plan
Departure
Patient Disposition: Home (Routine Discharge)
Date of Disposition: 08/26/25
Time of Disposition: 07:54
Patient with high blood pressure during this ER visit?: Yes
Condition: Good
Discharge Problem:
Acute viral syndrome, CHF exacerbation
Instructions: Cough, runny nose, and colds, *[facility] Heart Failure Instructions, BLOOD PRESSURE
Prescriptions:
New
albuterol sulfate [Ventolin HFA] 90 mcg/actuation HFA aerosol inhaler
2 inh inhalation Q6H PRN (Reason: shortness of breath or wheezing) Qty: 6.7 0RF
No Action
paroxetine HCl 20 MG tablet
20 mg PO DAILY
omeprazole 40 mg Capsule,Delayed Release(Dr/Ec)
40 mg PO DAILY
omega [id number] oil [Fish Oil] 1,000 (120-180) mg Capsule
1 cap PO QPM
Prevagen
1 cap PO DAILY
Eliquis 5 mg tablet
5 mg PO BID Qty: 60 3RF
metoprolol succinate [Toprol XL] 50 mg tablet extended release 24 hr
50 mg PO BID Qty: 60 11RF
furosemide [Lasix] 40 mg tablet
20 mg PO BID
cinnamon bark [Cinnamon] 500 mg Capsule
500 mg PO DAILY
valsartan 160 mg Tablet
160 mg PO DAILY
coQ10 (ubiquinol) 100 mg Capsule
100 mg PO DAILY
atorvastatin 80 mg tablet
80 mg PO QPM
Referrals:
Hung Barrett DO [Family Provider, Family Practice]
Activity Restrictions/Additional Instructions:
I recommend taking Flonase for your symptoms. You can also trial albuterol inhaler.
Please increase your Lasix to 40 mg once a day for 5 days. You should receive a call from your from your cardiology office in the next few days to schedule follow-up appointment, did not receive a call the attached number to schedule follow-up.
PLEASE RETURN TO ER SHOULD YOU DEVELOP ACUTE WORSENING OR SYMPTOMS, CHEST PAIN, SHORTNESS OF BREATH, INTRACTABLE NAUSEA OR VOMITING, FAINTING SPELLS, LIGHTHEADEDNESS, DIZZINESS, OR ANY OTHER SIGNS OR SYMPTOMS WORRISOME TO YOU.
Interventions
Interventions:
*Risk Screen - Suicide Last Done: 08/26/25 07:03
*General Assessment Last Done: 08/26/25 07:01
*Neglect/Abuse Screening Last Done: 08/26/25 04:32
*ED- Fall Risk Assessment Last Done: 08/26/25 04:32
*ED COVID-19 Vaccine History Last Done: 08/26/25 04:32
*ED Influenza Vaccine History Last Done: 08/26/25 04:32
*Nursing Disposition Last Done: 08/26/25 08:28
ED- Cardiac Assessment Last Done: 08/26/25 04:32
ED- Pulmonary Assessment Last Done: 08/26/25 04:32
Discharge Date and Time
Discharge Date/Time: 08/26/25 08:29
Print Language: PERUVIAN
[2025-08-26 05:00] VITALS: BP 152/85
[2025-08-26 05:14] LABS: Hematocrit 46.5 % (39.0-52.0); Hemoglobin 14.6 g/dL (13.0-18.0); Mean Corp Hgb Conc. 31.4 g/dL (33.0-37.0); Mean Corpuscular Volume 92.1 fL (80.0-94.0); Nucleated Red Blood Cells % 0 % (-); Platelet Count 148 10^3/uL (130-400); Red Cell Dist. Width 13.8 % (11.5-14.5)
[2025-08-26 05:34] LABS: ALT (SGPT) 23 U/L (0-50); AST (SGOT) 23 U/L (17-59); Albumin 4.3 g/dl (3.5-5.0); Alkaline Phosphatase 95 U/L (38-126); Blood Urea Nitrogen 20 mg/dl (9-20); Calcium 9.4 mg/dl (8.4-10.2); Carbon Dioxide 28 mmol/L (22-30); Chloride 106 mmol/L (98-107); Estimated Creatinine Clearance 63 ml/min; Glucose 119 mg/dl (70-99); Potassium 4.8 mmol/L (3.5-5.1); Sodium 142 mmol/L (135-145); Total Protein 7.2 g/dl (6.3-8.2); eGFR > 60.00
[2025-08-26 05:35] LABS: COVID-19 Antigen Negative (Negative)
[2025-08-26 05:46] LABS: Troponin I < 0.012 ng/ml
[2025-08-26 06:00] VITALS: BP 159/88
[2025-08-26] MEDS: DUONEB 3 ML INH (06:01)
[2025-08-26 07:00] VITALS: BP 146/85
[2025-08-26 07:45] VITALS: BP 153/93
[2025-08-26] MEDS: LASIX 40 MG IV (07:48)
== END 2025-08-26 08:29 | disposition home or self-care (01) ==
LOC: EMR 04:11
PROVIDERS: Emergency Medicine; EMERGENCY PHYSICIAN Emergency Medicine; FAMILY PHYSICIAN Family Medicine
DX: B34.9 Viral infection, unspecified (principal); I11.0 Hypertensive heart disease with heart failure; I50.9 Heart failure, unspecified; E78.00 Pure hypercholesterolemia, unspecified; I48.0 Paroxysmal atrial fibrillation; I48.92 Unspecified atrial flutter; F17.210 Nicotine dependence, cigarettes, uncomplicated; Z79.01 Long term (current) use of anticoagulants; Z91.148 Patient's other noncompliance with medication regimen for other reason; Z11.52 Encounter for screening for COVID-19
CPT/HCPCS: 96374; 94640; 99285; 71046; 80053; 83880; 84484; 85025; 87502; 87811; 93005